=== PATIENT | male | born 1990 | race Caucasian/White ===

== ENCOUNTER 2021-01-16 19:15 | Emergency (ER) | payer SELFPAY ==
[2021-01-16 19:16] VITALS: BP 130/73; PULSE 103; RESP 18; TEMP 35.6; O2SAT 97; BMI 25.6
[2021-01-16 20:23] VITALS: PULSE 84; RESP 16
[2021-01-16] MEDS: Albuterol 2.5 MG/3 ML VIAL.NEB. INHALATION ×3 (20:25)
--- NOTE | 2021-01-16 20:42 | RAD_ITS ---
STUDY: X-RAY CHEST REASON FOR EXAM: Male, 30 years old. Hemoptysis and wheezing TECHNIQUE: PA and lateral views of the chest. COMPARISON: None. FINDINGS: The lungs are clear and expanded. There is no demonstrated pleural abnormality. Normal size heart. Normal mediastinum and amanda. Normal visualized pulmonary arteries. Normal visualized aortic arch and descending thoracic aorta. Normal visualized thoracic spine. Normal visualized ribs, clavicles, and shoulders. There is no demonstrated abnormality of the visualized soft tissue structures of the upper abdomen. RAD/Chest PA and Lateral IMPRESSION: Normal x-ray examination of the chest. Electronically Signed: Nelson Davis MD at 21:33 EDT , Service support ,
[2021-01-16 21:08] VITALS: PULSE 100; RESP 16; O2SAT 100; O2SAT 98
--- NOTE | 2021-01-16 21:10 | EX.ED.DYSGE1 ---
HPI History of Present Illness Chief Complaint: Cold Sx Informant: patient Onset/Context/Timing Onset: Yesterday Context: Sudden Onset Timing: Intermittent Quality: Cough, shortness of breath, hemoptysis Location: Respiratory Current Severity: Mild Maximum Severity: Moderate Worsened by: Dyspnea on exertion Relieved by: Nothing Associated Symptoms Associated Symptoms: Hoarse voice, wheezing and dyspnea on exertion Narrative Narrative: Patient is a 30-year-old male who is a smoker. He had asthma as a child. He reports temperature to 101.0 ?F. He denies rhinorrhea, congestion postnasal drainage. Denies sore throat. Does have a cough. Cough is scantly productive. He was concerned because he coughed up blood. He also complains of dyspnea on exertion. He had Covid. He was not vaccinated. He denies headache, ocular, auditory or visual symptoms. He denies neck pain or neck stiffness. He denies GI symptoms. He is a smoker. Prior similar symptoms: Yes Recent Illness/Hospitalization: No PFSH PFSH Home Medications albuterol sulfate [Ventolin HFA] 2 puff INHALATION Q4H PRN PRN #1 inhaler 01/16/21 [Rx Last Taken Unknown] Allergy/AdvReac Type Severity Reaction Status Date / Time shellfish derived Allergy Anaphylaxis Verified 01/16/21 19:18 no surgical history Social History (Updated 01/16/21 @ 21:[address] Sameer Menjivar MD) household members: none Smoking Status: Current every day smoker tobacco type: cigarettes alcohol intake: current alcohol intake frequency: a few times a month substance use type: does not use ROS ROS ED Constitutional Constitutional ED: Reports chills and fever(s); Denies subjective or sweats Eyes Eyes: Denies blurry vision, change in vision or diplopia ENT ENT ED: Denies ear pain, rhinorrhea or sore throat Cardiovascular Cardiovascular: Denies chest pain, orthopnea, palpitations, paroxysmal nocturnal dyspnea or racing heartbeat Respiratory/Chest Respiratory/Chest: Reports cough, dyspnea, dyspnea on exertion and sputum; Denies orthopnea or paroxysmal nocturnal dyspnea Gastrointestinal Gastrointestinal: Denies abdominal pain, diarrhea, nausea or vomiting Musculoskeletal Musculoskeletal: Denies arthralgias, back pain, myalgias or neck pain Integumentary Denies rash Neurologic Neurologic: Denies headache(s), paresthesias or weakness Endocrine Endocrinology: Denies polydipsia, polyphagia or polyuria Allergic/Immunologic Allergic/Immunologic ED: Denies urticaria EXAM Physical Exam Const Vital Signs: 01/16/21 19:16 01/16/21 20:23 01/16/21 21:08 Temperature 96.1 F L Temperature Source Temporal Pulse Rate 103 H 84 100 Respiratory Rate 18 16 16 Respiratory Effort Short of Breath Respiratory Pattern Normal Blood Pressure 130/73 H Blood Pressure Mean 92 Pulse Ox 97 98 Oxygen Delivery Method Room Air Room Air Positive well nourished HEENT Reports TM's clear and moist mucous membranes Tympanic Membrane ED: Yes TM's clear Eyes PERRL and EOMs intact bilaterally General Eye ED: Negative for pale conjunctiva or scleral icterus Neck no lymphadenopathy and no JVD Chest Wall inspection of chest normal Resp normal respiratory effort and clear to auscultation bilaterally Cardio regular rhythm, S1 normal heart sound, S2 normal heart sound and no murmurs Rate: tachycardic GI normal to inspection, nondistended, normoactive bowel sounds Palpation: soft Back/Spine no CVA tenderness Extremity normal to inspection General Extremety ED: Negative for edema or tenderness General Extremity: Negative for edema Neuro oriented x3, CN's II-XII intact bilaterally and no sensory deficits noted Sensorium / Orientation: alert Motor Exam: strength 5/5 throughout Psych mental status grossly normal Skin no rashes or lesions noted and no wounds MDM MDM MDM Narrative Medical decision making narrative: Because patient complains of hemoptysis has wheezing will get chest x-ray to assess for pneumonia etc. Patient was treated with albuterol. Will reassess. Radiography Chest X-Ray - ED: 2 View, Read by ED Physician, Heart, Lungs, Mediastinum, Bony Structures and No Acute Disease Diagnostic Testing: Radiology Impression Chest X-Ray 01/16/21 20:42 IMPRESSION: Normal x-ray examination of the chest. Electronically Signed: Nelson Davis MD at 21:33 EDT , Service support , Treatment and Re-Evaluation Comments:: Was reexamined. He is wheeze free. He was discharged prescription for albuterol. Discharge Plan Triage Chief Complaint: Cold Sx ED Provider: Sameer Menjivar Dx/Rx/DC Orders Clinical Impression: Cough with hemoptysis, Acute bronchitis with wheezing Instructions: ED Bronchitis, No Antibiotic (Adult), ED Hemoptysis Prescriptions: New albuterol sulfate [Ventolin HFA] 1 INHALER inhaler 2 puff inhalation Q4H PRN PRN (Reason: Wheezing) Qty: 1 RF: 0 Primary Care Provider: Care Physician,No Primary Referrals: Fast,Melody, DO [NON-STAFF] - 1-2 Weeks Care Physician,No Primary [Primary Care Provider] - Disposition Disposition: Home, Self Care
== END 2021-01-16 21:56 | disposition home or self-care (01) ==
PROVIDERS: Emergency Provider Emergency Medicine
DX: J20.9 Acute bronchitis, unspecified (principal); R04.2 Hemoptysis; Z20.822 Contact with and (suspected) exposure to COVID-19; F17.210 Nicotine dependence, cigarettes, uncomplicated; Z79.899 Other long term (current) drug therapy
CPT/HCPCS: 71046; 87426; 94640; 99283

== ENCOUNTER 2021-03-28 00:10 | Emergency (ER) | payer MEDICAID, SELFPAY ==
[2021-03-28 00:12] VITALS: BP 139/98; PULSE 98; RESP 18; TEMP 36.6; O2SAT 99; BMI 27.1
[2021-03-28 00:16] VITALS: O2SAT 96
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
[2021-03-28 05:46] VITALS: RESP 16
[2021-03-28 07:15] VITALS: BP 120/80; PULSE 101; RESP 16; O2SAT 96
== END 2021-03-28 07:20 | disposition home or self-care (01) ==
PROVIDERS: Emergency Provider Emergency Medicine
DX: S60.221A Contusion of right hand, initial encounter (principal); Y04.8XXA Assault by other bodily force, initial encounter; Y93.01 Activity, walking, marching and hiking; Y92.9 Unspecified place or not applicable; Y99.9 Unspecified external cause status; F17.210 Nicotine dependence, cigarettes, uncomplicated
CPT/HCPCS: 70450; 70486; 72125; 73130; 99285

== ENCOUNTER 2023-02-10 13:38 | Emergency (ER) | payer MEDICAID, SELFPAY ==
[2023-02-10 13:40] VITALS: BP 152/103; PULSE 128; RESP 18; TEMP 36.7; O2SAT 97; BMI 23.8
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
[2023-02-10 14:49] VITALS: BP 148/98; PULSE 115; RESP 16; O2SAT 97
[2023-02-10 14:54] LABS: Absolute Lymphocyte Count 2.44 X10^3/uL (0.83-4.51); Basophil# 0.05 X10^3/uL; Basophil% 0.6 % (0-1); Eosinophil# 0.19 X10^3/uL; Eosinophils% 2.3 % (0-5); Lymphocyte # 2.44 X10^3/ul (0.83-4.51); Lymphocyte % 29.5 % (19-41); Mean Corp Hgb Conc 32.6 g/dL (32-36); Mean Corpuscular Hgb 29.5 pg (27.0-32.0); Mean Corpuscular Volume 90.6 fL (80-94); Mean Platelet Vol. 12.2 fl (6.2-12.0); Monocyte% 7.2 % (0-10); NRBC Flagged by Analyzer 0 % (0-5); Neutrophil # 4.98 X10^3/uL (2.7-7.7); Neutrophil % 60.2 % (47-70); Platelet Count 244 K/mm3 (150-450); RBC Distribution Width CV 13.3 % (11.6-14.6); RBC Distribution Width SD 44.7 fl (35.1-43.9); Red Blood Count 5.08 M/mm3 (4.6-6.2); White Blood Count 8.3 K/mm3 (4.4-11.0)
[2023-02-10 15:10] LABS: ALB/GLOB Ratio 1.3 RATIO (0.9-2.4); AST(SGOT) 28 U/L (15-37); Alanine Aminotransfer ALT/SGPT 35 U/L (16-61); Albumin, Serum 4.5 g/dL (3.2-5.0); Alkaline Phosphatase 81 U/L (45-117); Anion Gap 10 (5-15); BUN 10 mg/dL (7-18); BUN/Creat Ratio 9.9 RATIO (10-20); Calcium,Total 9.5 mg/dL (8.5-10.1); Chloride 105 mmol/L (98-107); Creatinine, Serum 1.01 mg/dL (0.70-1.30); EST Glomerular Filtration Rate 90 mL/min (>60); Est Glom Filt Rate - Afr Amer 109 mL/min (>60); Estimated Creatinine Clearance 114.18 ml/min; Globulin 3.4 g/dL (2.2-4.2); Glucose 101 mg/dL (74-106); Potassium 2.9 mmol/L (3.5-5.1); Protein, Total 7.9 g/dL (6.4-8.2); Sodium Level 141 mmol/L (136-145)
[2023-02-10 15:22] LABS: Alcohol, Blood (Medical)-Serum < 3.0 mg/dL
[2023-02-10] MEDS: Potassium Chloride Oral Tablet 20 MEQ 40 MEQ PO (15:24)
[2023-02-10 15:42] VITALS: RESP 16
[2023-02-10 15:44] VITALS: RESP 16
[2023-02-10 16:35] LABS: Amphetamine Urine VISTA POSITIVE (<1000 ng/mL); Barbiturate Urine VISTA NEGATIVE (< 200 ng/mL); Benzodiazepine Urine VISTA NEGATIVE (< 200 ng/mL); Cocaine Urine VISTA POSITIVE (< 300 ng/mL); Ecstacy Urine VISTA POSITIVE (< 500 ng/mL); Methadone Urine VISTA NEGATIVE (< 300 ng/mL); PCP Urine VISTA NEGATIVE (< 25 ng/mL); THC Urine VISTA POSITIVE (< 50 ng/mL); Vista UDS pH Range 6
[2023-02-10 19:45] VITALS: BP 133/74; PULSE 87; RESP 16; O2SAT 98
== END 2023-02-10 19:46 | disposition home or self-care (01) ==
PROVIDERS: Emergency Provider Emergency Medicine; Visit Provider Emergency Medicine
DX: F23 Brief psychotic disorder (principal); F14.10 Cocaine abuse, uncomplicated; F31.9 Bipolar disorder, unspecified; E87.6 Hypokalemia; R36.9 Urethral discharge, unspecified; Z11.3 Encounter for screening for infections with a predominantly sexual mode of transmission; F17.210 Nicotine dependence, cigarettes, uncomplicated; Z79.899 Other long term (current) drug therapy
CPT/HCPCS: 80053; 80307; 82077; 85025; 87491; 87591; 87811; 99285

== ENCOUNTER 2023-08-25 12:22 | Emergency (ER) | payer MEDICAID, SELFPAY ==
[2023-08-25 12:23] VITALS: BP 139/83; PULSE 79; RESP 14; TEMP 36.4; O2SAT 100; BMI 22.8
--- NOTE | 2023-08-25 12:32 | EX.ED.DYSGE1 ---
HPI <VERITO Villareal - Last Filed: 08/25/23 14:16> History of Present Illness Chief Complaint: Lower Extremity Injury Narrative Narrative: 32-year-old male states about a week ago he was doing repetitions of overhead squats when he felt a pop and pain in his right groin area. He has avoided lower body exercises but it hurts with movement or bending. He states he has to go up and down stairs frequently at work which exacerbates the pain. No back or abdominal pain. Pain does not radiate down his leg. He has no weakness or paresthesias. No history of prior injury or surgery. PFSH <VERITO Villareal - Last Filed: 08/25/23 14:16> [facility] Medical History (Updated 08/25/23 @ 13:14 by VERITO Villareal) Anxiety Bipolar disorder Depression PTSD (post-traumatic stress disorder) Home Medications albuterol sulfate 90 mcg/actuation aerosol inhaler (Ventolin HFA) 2 puff inhalation Q4H PRN PRN Wheezing ##1 01/16/21 [Rx Last Taken Unknown] acamprosate 333 mg tablet,delayed release 333 mg PO BID 02/10/23 [History Last Taken Unknown] bupropion HCl 150 mg 24 hr tablet, extended release 150 mg PO DAILY 02/10/23 [History Last Taken Unknown] cholecalciferol (vitamin D3) 125 mcg (5,000 unit) tablet 125 mcg PO DAILY 02/10/23 [History Last Taken Unknown] lisdexamfetamine 50 mg capsule (Vyvanse) 50 mg PO DAILY 02/10/23 [History Last Taken Unknown] propranolol 40 mg tablet 40 mg PO Q12H 02/10/23 [History Last Taken Unknown] Allergy/AdvReac Type Severity Reaction Status Date / Time shellfish derived Allergy Anaphylaxis Verified 08/25/23 12:24 Social History (Updated 02/10/23 @ 14:[address] Brad Calero MD) household members: none Smoking Status: Current some day smoker tobacco type: cigarettes alcohol intake: current alcohol intake frequency: a few times a month substance use type: crack/cocaine ROS <VERITO Villareal - Last Filed: 08/25/23 14:16> ROS ED ROS Narrative Neuro: Negative for motor/sensory dysfunction. Musc: Positive for right hip pain. EXAM <VERITO Villareal - Last Filed: 08/25/23 14:16> Physical Exam Narrative Exam Narrative: CONST: Patient sitting in no acute distress. EYES: Normal inspection. NECK: Normal inspection. Back: Normal inspection, no midline tenderness. SKIN: Color normal, no rash, warm, dry, intact. EXTREMITIES: Normal appearance of BLLE. Full ROM, 5/5 strength in bilateral hip flexion, knee flexion/extension, DF/PF. Normal sensation. 2+ DP pulses. Tender over right groin muscles. No tenderness of the pelvis or hip. No pain with logroll. NEURO: Oriented x4. PSYCH: Normal affect. Const Vital Signs: 08/25/23 12:23 Temperature 97.5 F L Temperature Source Temporal Pulse Rate 79 Respiratory Rate 14 Blood Pressure 139/83 H Blood Pressure Mean 101 Pulse Ox 100 Oxygen Delivery Method Room Air <Mervin Aldrich MD - Last Filed: 08/25/23 14:46> Physical Exam Const Vital Signs: 08/25/23 12:23 Temperature 97.5 F L Temperature Source Temporal Pulse Rate 79 Respiratory Rate 14 Blood Pressure 139/83 H Blood Pressure Mean 101 Pulse Ox 100 Oxygen Delivery Method Room Air MDM <VERITO Villareal - Last Filed: 08/25/23 14:16> [facility] Narrative Medical decision making narrative: Patient has pain in his right groin after squatting last week. He is ambulatory. He has no external signs of injury. Lower extremities are neurovascularly intact. He has reproducible tenderness over the muscles of his right groin and I suspect a strain. X-ray shows no acute findings. I discussed symptomatic care at home and he was discharged in stable condition. Radiography Diagnostic Testing: Clinical Impression(s) from Imaging Studies Hip/Pelvis X-Ray 08/25/23 12:37 IMPRESSION: No evidence of displaced pelvic or hip fracture. Electronically Signed: Louis Royal MD at 13:09 EST , ED attending interpretation of right hip and pelvis shows no fracture or dislocation. <Mervin Aldrich MD - Last Filed: 08/25/23 14:46> [facility] Narrative Medical decision making narrative: Patient has pain in his right groin after squatting last week. He is ambulatory. He has no external signs of injury. Lower extremities are neurovascularly intact. He has reproducible tenderness over the muscles of his right groin and I suspect a strain. X-ray shows no acute findings. I discussed symptomatic care at home and he was discharged in stable condition. Dr. Aldrich: I have personally performed a face to face assessment of the patient and have reviewed the NADIA Note. I performed a substantive portion of the visit including all aspects of the following. My calvert findings include: History is right inguinal pain after squatting last week with weights. Exam is afebrile. Vital signs noted. Regular rate and rhythm. Lungs clear to auscultation bilaterally. Abdomen soft and nontender with normal active bowel sounds. Neuro vas intact distally right lower extremity, mild tenderness to palpation right inguinal area along hip abductors. Medical Decision Making: In the differential diagnosis is inguinal hernia versus groin strain versus pelvic fracture. I have low suspicion for hernia based on his clinical examination. X-rays obtained to rule out fracture. On my interpretation, no evidence of acute fracture. I reviewed the radiology report which confirms my independent interpretation. Patient ambulatory here, will continue rest and [id number] analgesics. He was told to refrain from squatting motion and exercises until fully healed. Disposition is discharged home in stable condition. Other additions or changes: [None] Radiography Diagnostic Testing: Clinical Impression(s) from Imaging Studies Hip/Pelvis X-Ray 08/25/23 12:37 IMPRESSION: No evidence of displaced pelvic or hip fracture. Electronically Signed: Louis Royal MD at 13:09 RUST , Discharge Plan Triage Chief Complaint: Lower Extremity Injury ED Midlevel Provider: Kiera Mendez ED Provider: Mervin Aldrich Dx/Rx/DC Orders Clinical Impression: Strain of right groin Instructions: ED Groin Strain Prescriptions: No Action albuterol sulfate [Ventolin HFA] 1 INHALER inhaler 2 puff inhalation Q4H PRN PRN (Reason: Wheezing) Qty: 1 0RF acamprosate 333 mg tablet,delayed release (DR/EC) 333 mg PO BID Patient Comments: TAKE 1 TABLET BY MOUTH TWICE DAILY bupropion HCl 150 mg tablet extended release 24 hr 150 mg PO DAILY Patient Comments: TAKE 1 TABLET BY MOUTH EVERY DAY cholecalciferol (vitamin D3) 125 mcg (5,000 unit) tablet 125 mcg PO DAILY Patient Comments: TAKE 1 TABLET BY MOUTH EVERY DAY propranolol 40 mg tablet 40 mg PO Q12H Patient Comments: TAKE 1 TABLET BY MOUTH TWICE DAILY Vyvanse 50 mg capsule 50 mg PO DAILY Patient Comments: TAKE 1 CAPSULE BY MOUTH EVERY MORNING Primary Care Provider: Care Physician,No Primary Referrals: Care Physician,No Primary [Primary Care Provider] - Activity Restrictions/Additional Instructions: Rest, ice, and take Tylenol or Motrin as needed Disposition Disposition: Home, Self Care Discharge Date/Time: 08/25/23 13:43
--- NOTE | 2023-08-25 12:37 | RAD_ITS ---
INDICATION: pain EXAMINATION/TECHNIQUE: X-RAY - XR Hip Unilateral with Pelvis when performed; 2-3 Views COMPARISON: No relevant prior comparison study available FINDINGS: PELVIC BONES: No displaced fracture, destructive or sclerotic lesions. Note that overlapping bowel shadows may however obscure fine detail. Sacroiliac joints are unremarkable. No widening of the pubic symphysis. HIPS: The articular structures are unremarkable. No displaced fracture seen in this frontal view. SOFT TISSUES: No soft tissue swelling or gas. RAD/HIP, UNI W/ Pelvis 2-3 Views IMPRESSION: No evidence of displaced pelvic or hip fracture. Electronically Signed: Louis Royal MD at 13:09 EST ,
--- OUTSIDE RECORDS SUMMARY | 2023-08-25 12:51 | XMS RPT_ITS | CCD ---
Author Name Unknown Address [address] [place] [address] Organization [facility] Care Team Providers Care Hose Builder Name Role Phone Unavailable Primary Care Provider BIRGIT Atkins Referring Unavailable SALO CURIEL Referring Unavailable Unavailable Primary Care Provider LUIS Shipman Attending Unavailable LUIS DEMPSEY Admitting Unavailable Medications Current Medications Medication Drug Class(es) Dates Sig (Normalized) Sig (Original) predniSONE 20 mg oral tablet (1 source) Start: 12-05-2021 End: 12-10-2021 take 2 tablets by mouth once daily predniSONE (DELTASONE) 20 mg tablet Indications: Allergic conjunctivitis and rhinitis, bilateral Take 2 tablets by mouth once daily for 5 days. 10 tablet 0 12/05/2021 12/10/2021 Active Completed/Discontinued Medications Medication Drug Class(es) Dates Sig (Normalized) Sig (Original) acamprosate (2 sources) acamprosate calc ium (ACAMPROSATE ORAL) Take by mouth. 0 Active Problems Problem Classification Problem Date Documented Da te Episodic/Chronic Alcohol-related disorders (1 source) Alcohol dependence; Translations: [Alcohol dependence, uncomplicated] Chronic Fluid and electrolyte disorders (1 source) Hypokalemia; Translations: [Hypokalemia] Onset: 02-11-2023 Episodic Inflammation; infection of eye (except that caused by tuberculosis or sexually transmitteddisease) (1 source) Allergic conjunctivitis; Translations: [Acute atopic conjunctivitis, bilateral] Episodic Other lower respiratory disease (1 source) Cough; Translations: [Acute cough] Episodic Schizophrenia and other psychotic disorders (1 source) Brief psychotic disorder; 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] Onset: 02-13-2023 Episodic Substance-related disorders (1 source) Other psychoactive substance use, unspecified, uncomplicated; Translations: [Other psychoactive substance use, unspecified, uncomplicated] Onset: 02-11-2023 Episodic Unclassified (1 source) Acute cough; Translations: [Acute cough] Onset: 07-04-2022 Viral infection (2 sources) Viral infection, unspecified; Translations: [Viral disease] Onset: 07-12-2021 Episodic Results Test Name Value Interpretation Reference Range Facil ity Vital Signs Date Time Vital Sign Value Performing Clinician Mohamud dwyer 07-04-2022 09:30-0500 Body temperature 97.5 [degF] Birgit Recinos SOCKET PULLER.LUMBER LOADER Work Phone: [facility] 07-04-2022 09:30-0500 Body weight 89.09 kg Birgit Recinos SOCKET PULLER.LUMBER LOADER Work Phone: [facility] 07-04-2022 09:30-0500 Diastolic blood pressure 70 mm[Hg] Birgit Recinos SOCKET PULLER.LUMBER LOADER Work Phone: [facility] 07-04-2022 09:30-0500 Heart rate 100 /min Birgit Recinos SOCKET PULLER.LUMBER LOADER Work Phone: [facility] 07-04-2022 09:30-0500 Respiratory rate 18 /min Birgit Recinos SOCKET PULLER.LUMBER LOADER Work Phone: [facility] 07-04-2022 09:30-0500 SaO2% (BldA) [Mass fraction] 98 % Birgit Recinos SOCKET PULLER.LUMBER LOADER Work Phone: [facility] 07-04-2022 09:30-0500 Systolic blood pressure 108 mm[Hg] Birgit Recinos SOCKET PULLER.LUMBER LOADER Work Phone: [facility] 12-05-2021 08:21-0400 Body temperature 97 [degF] Vaibhav Felton SOCKET PULLER.LUMBER LOADER Work Phone: [facility] 12-05-2021 08:21-0400 Body weight 92.26 kg Vaibhav Felton SOCKET PULLER.LUMBER LOADER Work Phone: [facility] 12-05-2021 08:21-0400 Diastolic blood pressure 80 mm[Hg] Vaibhav Felton SOCKET PULLER.LUMBER LOADER Work Phone: [facility] 12-05-2021 08:21-0400 Heart rate 75 /min Vaibhav Felton SOCKET PULLER.LUMBER LOADER Work Phone: [facility] 12-05-2021 08:21-0400 Respiratory rate 16 /min Vaibhav Felton SOCKET PULLER.LUMBER LOADER Work Phone: [facility] 12-05-2021 08:21-0400 SaO2% (BldA) [Mass fraction] 98 % Vaibhav Felton SOCKET PULLER.LUMBER LOADER Work Phone: [facility] 12-05-2021 08:21-0400 Systolic blood pressure 122 mm[Hg] Vaibhav King SOCKET PULLER.LUMBER LOADER Work Phone: [facility] 03-28-2021 16:44-0400 Body temperature 98.8 [degF] [employer] Phone: 03-28-2021 16:44-0400 Body weight 90.72 kg [employer] Phone: 03-28-2021 16:44-0400 Diastolic blood pressure 106 mm[Hg] [employer] Phone: 03-28-2021 16:44-0400 Heart rate 108 /min [employer] Phone: 03-28-2021 16:44-0400 Respiratory rate 16 /min [employer] Phone: 03-28-2021 16:44-0400 SaO2% (BldA) [Mass fraction] 97 % [employer] Phone: 03-28-2021 16:44-0400 Systolic blood pressure 161 mm[Hg] [employer] Phone: Encounters Encounter Date Encounter Type Care Provider Facility Start: 02-11-2023 End: 02-18-2023 [facility] and [facility] Start: 07-04-2022 End: 07-04-2022 [facility] Start: 07-04-2022 End: 07-04-2022 Office outpatient visit 15 minutes Birgit Grisel MEJIA.LUMBER LOADER Work Phone: [facility] Procedures Date Procedure Procedure Detail Performing Clinician Start: 02-18-2023 DISCHARGE PATIENT ABBIE DEMPSEY Start: 02-13-2023 ACTIVITY TOLERATED Santy DEMPSEY Start: 02-13-2023 INITIATE HYPOGLYCEMI A TREATMENT LUIS DEMPSEY Start: 02-13-2023 MONITOR LUIS HUNG Start: 02-13-2023 NURSING COMMUNICATION Santy DEMPSEY Start: 02-13-2023 REASON FOR NO CHEMIC AL VTE PROPHYLAXIS LUIS DEMPSEY Start: 02-13-2023 SUICIDE PRECAUTIONS ZAHEER DEMPSEY Start: 02-13-2023 VITAL SIGNS LUIS JENNINGSN Start: 02-12-2023 ADMIT TO BEHAVIORAL ZAHEER DEMPSEY Start: 02-12-2023 ADULT DIET LUIS HUNG Start: 02-12-2023 FULL CODE LUIS HUNG Start: 02-12-2023 PATIENT MONITORING C LOSE Q 15 MINUTES LUIS DEMPSEY Start: 02-12-2023 CONSTANT OBSERVATION JUAN DEMPSEY Start: 02-12-2023 Ecg routine ecg w/le ast 12 lds w/i&r LUIS DEMPSEY Start: 02-12-2023 Drug tst prsmv instr mnt chem analyzers pr date LUIS DEMPSEY Start: 02-12-2023 Urnls dip stick/tabl et rgnt auto w/o microscopy LUIS DEMPSEY Start: 02-12-2023 Comprehensive metabo lic panel LUIS DEMPSEY Start: 02-12-2023 Drug screen, qualitate/multi LUIS DEMPSEY Start: 02-11-2023 ALCOHOL AND OR DRUG ASSESSMENT LUIS DEMPSEY Start: 02-11-2023 FALL PRECAUTIONS SHANI AD KE Start: 02-11-2023 NOTIFY PHYSICIAN (SPECIFY) LUIS DEMPSEY Start: 02-11-2023 SEIZURE PRECAUTIONS ZAHEER AMMAD JESSICAEN Start: 02-11-2023 IP CONSULT TO SOCIAL WORK LUIS DEMPSEY Start: 02-11-2023 SUICIDE PRECAUTIONS [facility] DEM[facility]SE[facility] Start: 07-04-2022 COVID WITH FLUA+B, ROUTINE Birgit Recinos APRN.[facility] Work Phone: Plan of Treatment Date Care Activity Detail Author Start: 07-01-2022 DEPRESSION ASSESSMENT DEPRESSION ASSESSMENT [facility] Start: 03-01-2022 Influenza vaccination [facility] Start: 03-01-2021 Influenza vaccination Flu vaccine (#1) [employer] Phone: Start: 2008 DTaP/Tdap/Td vaccine (1 - Tdap) DTaP/Tdap/Td vaccine (1 - Tdap) [employer] Phone: Start: 2008 Urine microalbumin profile DTAP,TDAP,TD (1 - Tdap) [facility] Start: 10-13-2007 HEPATITIS C SCREENING HEPATITIS C SCREENING [facility] Start: 10-13-2007 HIV SCREENING HIV SCREENING [facility] Start: 2004 HIV screening HIV screen [facility] [employer] Phone: Start: 2001 Adult depression screening assessment DEPRESSION SCREENING [facility] Start: 2001 COVID-19 Vaccine (1) COVID-19 Vaccine (1) [employer] Phone: Start: 10-13-1995 PNEUMOCOCCAL (1 - PCV) PNEUMOCOCCAL (1 - PCV) [facility] Start: 1994 COVID-19 VACCINE (#1) COVID-19 VACCINE (#1) [facility] Start: 1990 Varicella vaccine (1 of 2 - 2-dose childhood series) Varicella vaccine (1 of 2 - 2-dose childhood series) [facility] [employer] Phone: Start: 04-13-1990 COVID-19 VACCINE (#1) COVID-19 VACCINE (#1) [facility] Start: 1989 HEPATITIS B (1 of 3 - 3-dose series) HEPATITIS B (1 of 3 - 3-dose series) [facility] Start: 1989 Hepatitis C [facility] End: 03-28-2021 XR HAND LEFT (MIN 3 VIEWS) XR HAND LEFT (MIN 3 VIEWS) Imaging STAT Once for 1 Occurrences starting 03/28/2021 until 03/28/2021 [employer] Phone: Payers Date Payer Category Payer Medicaid [employer] [id number] 2021-Present [phone] [place] [address] [id number] Medicaid [id number] 2021 Medicaid [id number] 2021 Medicaid [employer] [employer] [id number] 2021-Present [phone] [address] [place] [id number] Medicaid [id number] 1989 Unknown [id number] Social History Date Type Detail Facility Start: 03-28-2021 Tobacco smoking stat us [facility] Unknown if ever smoked [employer] Phone: Start: 03-28-2021 Alcohol intake Current drinke r of alcohol (finding) [employer] Phone: Start: 03-28-2021 Alcohol Comment almost 5th last nigh t [employer] Phone: Start: 1990 Sex Assigned At Not on file M [employer] Phone: Start: 11-25-2021 End: 12-05-2021 Exposure to SARS-CoV-2 (event) Not sure [employer] Start: 06-10-2021 End: 07-04-2022 Tobacco smoking status NHIS Smokes tobacco daily [facility] History of tobacco use Cigarette Smoker [facility] Start: 06-10-2021 End: 07-04-2022 Cigarettes smoked current (pack per day) - Reported 1 [facility] Start: 06-10-2021 End: 07-04-2022 Tobacco use and exposure Smokeless tobacco non-user [facility] Start: 06-10-2021 End: 07-04-2022 Tobacco Comment 1 pack per week [facility] Clinical Notes 07-12-2021 to 07-04-2022 Patient InstructionsBirgit Recinos APRN.JYOTI - 07/04/2022 9:49 AM Maddy Felton APRN.CNP - 12/05/2021 9:01 AM EDTPatient Instructions Note Date & Type Note Facility 07-04-2022 Note HNO ID: [id number] Author: RT John(R) Service: Nuclear Medicine Author Type: Technologist Type: Progress Notes Filed: 07/04/2022 10:02 AM Note Text: Radiology Service Progress Note PATIENT NAME: Alex Monreal DATE OF SERVICE: July 04, 2022 TIME: 9:57 AM PATIENT IDENTITY VERIFICATION COMPLETED USING TWO (2) IDENTIFIERS: Name and Date of confirmed by patient verbally. FALL SCREENING: Has the patient had 2 falls in the last year or 1 fall with injury or currently using an Ambulatory Assistive Device (Walker, Cane, Wheelchair, Crutches, etc.)? No PATIENT GENDER DATA: Male PATIENT RELEVANT IMPLANT DATA REVIEWED: Not Applicable RADIOLOGY DEPARTMENT: General X-ray: Exam(s) Completed: Chest X-Ray PERIPHERAL IV DATA: Not applicable SIGNED BY: RT John(R) July 04, 2022 9:57 AM [facility] 07-04-2022 Note HNO ID: [id number] Author: Birgit Recinos APRN.JYOTI Service: ? Author Type: Nurse Practitioner Type: Progress Notes Filed: 07/04/2022 10:19 AM Note Text: Subjective HPI Nontoxic-appearing male presents to urgent care with chief complaint of fever and cough. Duration of symptoms 4 days. Associated symptoms with chief complaint are on and off headache, muscle aches, fatigue, nonproductive cough, and fever. States fever body aches chills have since subsided. Today most prominent symptom is cough chest congestion. Patient stated symptoms started abruptly. Patient states they have used [id number]-[id number] medication with some success. Patient states they were in contact with individuals who were diagnosed with influenza. Patient denies any pain at this time. Patient denies any visual changes, visual disturbance, shortness of breath, rash, exercise intolerance, pleuritic pain, productive cough, abdominal pain, nausea, vomiting, chest pain, or change in bowel or bladder habits. Past medical history prescription medication use allergies reviewed. .Patient presents with: Cough: Chest congestion, nausea, ST, bodyaches x4 days History reviewed. No pertinent past medical history. History reviewed. No pertinent surgical history. ALLERGIES Patient has no known allergies. MEDICATIONS fluticasone (FLONASE) 50 mcg/actuation nasal spray Use 2 Sprays in each nostril once daily. Rinse mouth after use. olopatadine (PATANOL) 0.1 % ophthalmic solution Use 1 Drop in both eyes twice daily. propranolol (INDERAL) 10 mg tablet Take 10 mg by mouth three times daily. lisdexamfetamine (VYVANSE) 20 mg chew Take by mouth. albuterol HFA (PROVENTIL HFA, VENTOLIN HFA) 90 mcg/actuation inhaler Inhale 2 Puffs as instructed every 4 hours as needed for wheezing/shortness of breath. bupropion HCl (WELLBUTRIN ORAL) Take by mouth. acamprosate calcium (ACAMPROSATE ORAL) Take by mouth. trimethoprim-polymyxin (POLYTRIM) 10,000 unit- 1 mg/mL ophthalmic solution Use 1 Drop in the left eye four times daily. (Patient not taking: Reported on 07/12/2021 ) History reviewed. No pertinent family history. Social History Tobacco Use Smoking status: Every Day Packs/day: 1.00 Types: Cigarettes Smokeless tobacco: Never Tobacco comments: 1 pack per week BP 108/70 Pulse 100 Temp 36.4 ?C (97.5 ?F) Resp 18 Wt 89.1 kg (196 lb 6.4 oz) SpO2 98% Review of Systems Constitutional: Positive for chills and malaise/fatigue. Negative for fever. HENT: Positive for congestion. Negative for ear discharge, ear pain, sinus pain and sore throat. Eyes: Negative for blurred vision, pain, discharge and redness. Respiratory: Positive for cough. Negative for hemoptysis, sputum production, shortness of breath, wheezing and stridor. Cardiovascular: Negative for chest pain. Gastrointestinal: Negative for abdominal pain, diarrhea, nausea and vomiting. Musculoskeletal: Positive for myalgias. Skin: Negative for itching and rash. Neurological: Positive for headaches. Negative for dizziness. Objective Physical Exam Constitutional: General: He is not in acute distress. Appearance: He is not diaphoretic. HENT: Head: Normocephalic. Nose: Congestion present. Mouth/Throat: Mouth: Mucous membranes are moist. Pharynx: Oropharynx is clear. No oropharyngeal exudate or posterior oropharyngeal erythema. Eyes: Conjunctiva/sclera: Conjunctivae normal. Pupils: Pupils are equal, round, and reactive to light. Cardiovascular: Rate and Rhythm: Normal rate and regular rhythm. Heart sounds: Normal heart sounds. Pulmonary: Effort: Pulmonary effort is normal. No tachypnea, accessory muscle usage or respiratory distress. Breath sounds: No stridor. Wheezing present. No rhonchi or rales. Abdominal: Palpations: Abdomen is soft. Tenderness: There is no abdominal tenderness. There is no guarding or rebound. Musculoskeletal: Cervical back: Normal range of motion and neck supple. No rigidity or tenderness. Lymphadenopathy: Cervical: No cervical adenopathy. Skin: General: Skin is warm and dry. Neurological: Mental Status: He is alert and oriented to person, place, and time. ASSESSMENT/PLAN: 1. Acute cough - ICD9: 786.2, ICD10: R05.1 (primary diagnosis) - XR CHEST 2V FRONTAL/LAT - COVID WITH FLUA+B, ROUTINE 2. Viral illness - ICD9: 079.99, ICD10: B34.9 - Discussed viral etiology and rationale for treatment. - Symptomatic treatment with prn analgesia - Supportive care with fluids and rest - COVID WITH FLUA+B, ROUTINE IMPRESSION: No acute radiographic abnormality. Symptoms progressively improving. Chest x-ray negative. Treat as viral etiology at this time. Patient will follow up with primary care provider as needed. Patient was instructed to immediately proceed to emergency room for any new, worsening, or symptoms lasting longer than anticipated. The patient's clinical presentation is otherwi (more content not included)... [facility] 07-04-2022 Instructions Birgit Recinos APRN.[facility] - 07/04/2022 9:57 AM EST How to Manage Common Symptoms Associated with COVID for Adults Fever- Fever is a temperature over 100.4 F and can occur when the body is fighting an infection. To help treat a fever: Drink plenty of fluids and stay well hydrated. Eat small amounts of easy to digest food. Rest. Your body needs rest to recover, but getting up and moving around the house frequently is a good idea. You should try to continue doing your normal daily activities (bathing, toileting, grooming, cooking), though you will probably feel tired, and need to rest often. Avoid any heavy activity or exercise, as this will increase your body temperature. Dress in light clothing and stay covered in a light sheet. Keep the room temperature cool. Take a slightly warm (not cold or cool) bath, or apply damp washcloths to the forehead and wrists. Cough- Cough is a common symptom associated with COVID and can be bothersome. To help treat a cough: Stay well hydrated. Try warm water or tea with lemon and/or honey to help soothe the cough. Use a humidifier to add moisture to the air. Try a product with menthol, like a cough drop or a rub for your chest such as Vicks, which can help reduce cough. Try cough drops. Avoid smoking and other strong odors or perfumes. Try breathing exercises to keep your lungs open and clear. Take a big deep breath through your nose and hold for 5 seconds before slowly releasing. Repeat frequently, while you are awake. Congestion- Runny nose or nasal congestion can occur with COVID. Treatment can help relieve symptoms: Try OTC nasal saline spray, or nasal saline rinse to relieve mucus congestion. Nasal strips can help keep nasal passages open, to increase airflow. Elevating your head with an extra pillow in bed can help reduce congestion. Using a humidifier can increase moisture in the air, and make breathing easier. Sore Throat- Another common symptom with COVID, can be managed at home by: Stay well hydrated. Gargle with salt water - mix teaspoon salt with 1 cup of warm water and gargle. This helps to loosen mucus in the back of the throat and may reduce discomfort. Try ice chips, popsicles or lozenges to soothe the throat. Nausea/Vomiting/Diarrhea- These are common symptoms, and staying hydrated is most important. If you are nauseous or vomiting, start with small sips of water every 10-15 minutes and increase as tolerated. You can try sucking an ice cube too. If tolerating, you can try pedialyte or Gatorade, or flat sprite or gennaro-michael. Start slowly and increase as you are able to. Instead of meals, try smaller, more frequent snacks. Try eating bland foods like crackers, toast, rice, and applesauce. Avoid spicy, greasy or fried foods and dairy containing foods. Even if you aren't feeling hungry due to lack of smell or taste, it is important to try to take in some food when you are able. After drinking and eating, rest in an upright position for up to two hours as needed to help decrease nauseous feelings. Try closing your eyes, avoid moving and watching TV. Avoid strong odors that can make you feel more nauseated. When to seek emergency medical attention Look for emergency warning signs for COVID-19. If having any of these symptoms, seek emergency medical care immediately: Trouble breathing Persistent pain or pressure in the chest New confusion Inability to wake or stay awake Bluish lips or face *This list is not all possible symptoms. Please call your medical provider for any other symptoms that are severe or concerning to you. documented in this encounter [facility] 07-04-2022 History of Present illness Narrative Subjective HPI Nontoxic-appearing male presents to urgent care with chief complaint of fever and cough. Duration of symptoms 4 days. Associated symptoms with chief complaint are on and off headache, muscle aches, fatigue, nonproductive cough, and fever. States fever body aches chills have since subsided. Today most prominent symptom is cough chest congestion. Patient stated symptoms started abruptly. Patient states they have used okjz-rfo-boxmpbi medication with some success. Patient states they were in contact with individuals who were diagnosed with influenza. Patient denies any pain at this time. Patient denies any visual changes, visual disturbance, shortness of breath, rash, exercise intolerance, pleuritic pain, productive cough, abdominal pain, nausea, vomiting, chest pain, or change in bowel or bladder habits. Past medical history prescription medication use allergies reviewed. .Patient presents with: Cough: Chest congestion, nausea, ST, bodyaches x4 days History reviewed. No pertinent past medical history. History reviewed. No pertinent surgical history. ALLERGIES Patient has no known allergies. MEDICATIONS fluticasone (FLONASE) 50 mcg/actuation nasal spray Use 2 Sprays in each nostril once daily. Rinse mouth after use. olopatadine (PATANOL) 0.1 % ophthalmic solution Use 1 Drop in both eyes twice daily. propranolol (INDERAL) 10 mg tablet Take 10 mg by mouth three times daily. lisdexamfetamine (VYVANSE) 20 mg chew Take by mouth. albuterol HFA (PROVENTIL HFA, VENTOLIN HFA) 90 mcg/actuation inhaler Inhale 2 Puffs as instructed every 4 hours as needed for wheezing/shortness of breath. bupropion HCl (WELLBUTRIN ORAL) Take by mouth. acamprosate calcium (ACAMPROSATE ORAL) Take by mouth. trimethoprim-polymyxin (POLYTRIM) 10,000 unit- 1 mg/mL ophthalmic solution Use 1 Drop in the left eye four times daily. (Patient not taking: Reported on 07/12/2021 ) History reviewed. No pertinent family history. Social History Tobacco Use Smoking status: Every Day Packs/day: 1.00 Types: Cigarettes Smokeless tobacco: Never Tobacco comments: 1 pack per week BP 108/70 Pulse 100 Temp 36.4 C (97.5 F) Resp 18 Wt 89.1 kg (196 lb 6.4 oz) SpO2 98% Review of Systems Constitutional: Positive for chills and malaise/fatigue. Negative for fever. HENT: Positive for congestion. Negative for ear discharge, ear pain, sinus pain and sore throat. Eyes: Negative for blurred vision, pain, discharge and redness. Respiratory: Positive for cough. Negative for hemoptysis, sputum production, shortness of breath, wheezing and stridor. Cardiovascular: Negative for chest pain. Gastrointestinal: Negative for abdominal pain, diarrhea, nausea and vomiting. Musculoskeletal: Positive for myalgias. Skin: Negative for itching and rash. Neurological: Positive for headaches. Negative for dizziness. Objective Physical Exam Constitutional: General: He is not in acute distress. Appearance: He is not diaphoretic. HENT: Head: Normocephalic. Nose: Congestion present. Mouth/Throat: Mouth: Mucous membranes are moist. Pharynx: Oropharynx is clear. No oropharyngeal exudate or posterior oropharyngeal erythema. Eyes: Conjunctiva/sclera: Conjunctivae normal. Pupils: Pupils are equal, round, and reactive to light. Cardiovascular: Rate and Rhythm: Normal rate and regular rhythm. Heart sounds: Normal heart sounds. Pulmonary: Effort: Pulmonary effort is normal. No tachypnea, accessory muscle usage or respiratory distress. Breath sounds: No stridor. Wheezing present. No rhonchi or rales. Abdominal: Palpations: Abdomen is soft. Tenderness: There is no abdominal tenderness. There is no guarding or rebound. Musculoskeletal: Cervical back: Normal range of motion and neck supple. No rigidity or tenderness. Lymphadenopathy: Cervical: No cervical adenopathy. Skin: General: Skin is warm and dry. Neurological: Mental Status: He is alert and oriented to person, place, and time. ASSESSMENT/PLAN: 1. Acute cough - ICD9: 786.2, ICD10: R05.1 (primary diagnosis) - XR CHEST 2V FRONTAL/LAT - COVID WITH FLUA+B, ROUTINE 2. Viral illness - ICD9: 079.99, ICD10: B34.9 - Discussed viral etiology and rationale for treatment. - Symptomatic treatment with prn analgesia - Supportive care with fluids and rest - COVID WITH FLUA+B, ROUTINE IMPRESSION: No acute radiographic abnormality. Symptoms progressively improving. Chest x-ray negative. Treat as viral etiology at this time. Patient will follow up with primary care provider as needed. Patient was instructed to immediately proceed to emergency room for any new, worsening, or symptoms lasting longer than anticipated. The patient's clinical presentation is otherwise unremarkable at this time. Based on exam and clinical finding, the patient is stable for discharge. Plan of care was discussed with patient. Patient verbalizes understanding and agrees to plan of care. This note was generated using SlideMail software. It may contain errors in wording, punctuation, or spelling. Birgit Recinos APRN.JYOTI documented in this encounter [facility] 12-05-2021 Note HNO ID: [id number] Author: Vaibhav Felton APRN.JYOTI Service: ? Author Type: Nurse Practitioner Type: Progress Notes Filed: 12/05/2021 9:04 AM Note Text: Subjective HPI HPI Alex Monreal is a 31 year old male who presents today for CC of itchy watery eyes, nasal congestion. This started 1 day ago abruptly. Has tried nothing for relief. Symptoms are worsened by nothing. Risk factors hx of seasonal allergies. Denies cough, st, ear pain, fever, colored eye drainage. .Patient presents with: Eye Problem: bilateral red and irritated eyes x 1 day History reviewed. No pertinent past medical history. No past surgical history on file. ALLERGIES Patient has no known allergies. MEDICATIONS propranolol (INDERAL) 10 mg tablet Take 10 mg by mouth three times daily. lisdexamfetamine (VYVANSE) 20 mg chew Take by mouth. acamprosate calcium (ACAMPROSATE ORAL) Take by mouth. albuterol HFA (PROVENTIL HFA, VENTOLIN HFA) 90 mcg/actuation inhaler Inhale 2 Puffs as instructed every 4 hours as needed for wheezing/shortness of breath. bupropion HCl (WELLBUTRIN ORAL) Take by mouth. predniSONE (DELTASONE) 20 mg tablet Take 2 tablets by mouth once daily for 5 days. fluticasone (FLONASE) 50 mcg/actuation nasal spray Use 2 Sprays in each nostril once daily. Rinse mouth after use. olopatadine (PATANOL) 0.1 % ophthalmic solution Use 1 Drop in both eyes twice daily. trimethoprim-polymyxin (POLYTRIM) 10,000 unit- 1 mg/mL ophthalmic solution Use 1 Drop in the left eye four times daily. No family history on file. Social History Tobacco Use - Smoking status: Current Every Day Smoker Packs/day: 1.00 Types: Cigarettes - Smokeless tobacco: Never Used - Tobacco comment: 1 pack per week Substance Use Topics - Alcohol use: Not on file - Drug use: Not on file ROS Objective Blood pressure 122/80, pulse 75, temperature 36.1 ?C (97 ?F), temperature source Tympanic, resp. rate 16, weight 92.3 kg (203 lb 6.4 oz), SpO2 98 %. Physical Exam Constitutional: General: He is not in acute distress. Appearance: He is not toxic-appearing or diaphoretic. HENT: Head: Normocephalic and atraumatic. Nose: Congestion present. Eyes: General: Lids are normal. Right eye: No discharge. Left eye: No discharge. Conjunctiva/sclera: Right eye: Right conjunctiva is injected. Left eye: Left conjunctiva is injected. Cardiovascular: Rate and Rhythm: Normal rate and regular rhythm. Heart sounds: Normal heart sounds, S1 normal and S2 normal. Pulmonary: Effort: Pulmonary effort is normal. Breath sounds: Normal breath sounds. Neurological: Mental Status: He is alert and oriented to person, place, and time. Gait: Gait is intact. ASSESSMENT/PLAN: 1. Allergic conjunctivitis and rhinitis, bilateral - ICD9: 372.05, 477.9, ICD10: H10.13, J30.9 Allergic - see medication orders - course and contagiousness issues discussed, including hand washing. - Instructed to call if high fever, development of periorbital redness or swelling, eye pain, visual changes, concerns or if symptoms persist. - PREDNISONE 20 MG TABLET - FLUTICASONE PROPIONATE 50 MCG/ACTUATION NASAL SPRAY,SUSPENSION - OLOPATADINE 0.1 % EYE DROPS Agrees to plan Vaibhav Felton APRN.[facility] 12-05-2021 History of Present illness Narrative Images from the original note were not included. Subjective HPI HPI Alex Monreal is a 31 year old male who presents today for CC of itchy watery eyes, nasal congestion. This started 1 day ago abruptly. Has tried nothing for relief. Symptoms are worsened by nothing. Risk factors hx of seasonal allergies. Denies cough, st, ear pain, fever, colored eye drainage. .Patient presents with: Eye Problem: bilateral red and irritated eyes x 1 day History reviewed. No pertinent past medical history. No past surgical history on file. ALLERGIES Patient has no known allergies. MEDICATIONS propranolol (INDERAL) 10 mg tablet Take 10 mg by mouth three times daily. lisdexamfetamine (VYVANSE) 20 mg chew Take by mouth. acamprosate calcium (ACAMPROSATE ORAL) Take by mouth. albuterol HFA (PROVENTIL HFA, VENTOLIN HFA) 90 mcg/actuation inhaler Inhale 2 Puffs as instructed every 4 hours as needed for wheezing/shortness of breath. bupropion HCl (WELLBUTRIN ORAL) Take by mouth. predniSONE (DELTASONE) 20 mg tablet Take 2 tablets by mouth once daily for 5 days. fluticasone (FLONASE) 50 mcg/actuation nasal spray Use 2 Sprays in each nostril once daily. Rinse mouth after use. olopatadine (PATANOL) 0.1 % ophthalmic solution Use 1 Drop in both eyes twice daily. trimethoprim-polymyxin (POLYTRIM) 10,000 unit- 1 mg/mL ophthalmic solution Use 1 Drop in the left eye four times daily. No family history on file. Social History Tobacco Use Smoking status: Current Every Day Smoker Packs/day: 1.00 Types: Cigarettes Smokeless tobacco: Never Used Tobacco comment: 1 pack per week Substance Use Topics Alcohol use: Not on file Drug use: Not on file ROS Objective Blood pressure 122/80, pulse 75, temperature 36.1 C (97 F), temperature source Tympanic, resp. rate 16, weight 92.3 kg (203 lb 6.4 oz), SpO2 98 %. Physical Exam Constitutional: General: He is not in acute distress. Appearance: He is not toxic-appearing or diaphoretic. HENT: Head: Normocephalic and atraumatic. Nose: Congestion present. Eyes: General: Lids are normal. Right eye: No discharge. Left eye: No discharge. Conjunctiva/sclera: Right eye: Right conjunctiva is injected. Left eye: Left conjunctiva is injected. Cardiovascular: Rate and Rhythm: Normal rate and regular rhythm. Heart sounds: Normal heart sounds, S1 normal and S2 normal. Pulmonary: Effort: Pulmonary effort is normal. Breath sounds: Normal breath sounds. Neurological: Mental Status: He is alert and oriented to person, place, and time. Gait: Gait is intact. ASSESSMENT/PLAN: 1. Allergic conjunctivitis and rhinitis, bilateral - ICD9: 372.05, 477.9, ICD10: H10.13, J30.9 Allergic - see medication orders - course and contagiousness issues discussed, including hand washing. - Instructed to call if high fever, development of periorbital redness or swelling, eye pain, visual changes, concerns or if symptoms persist. - PREDNISONE 20 MG TABLET - FLUTICASONE PROPIONATE 50 MCG/ACTUATION NASAL SPRAY,SUSPENSION - OLOPATADINE 0.1 % EYE DROPS Agrees to plan Vaibhavly Felton APRN.CNP documented in this encounter [facility] 12-05-2021 Instructions Vaibhav Felton APRN.[facility]OTI - 12/05/2021 8:33 AM EDT Eye Allergies and Allergic Conjunctivitis The eyes are one of the most sensitive and vulnerable organs in the body. Airborne allergens and other particles can land directly on the surface of the eye, causing irritation and redness. Although tears constantly wash the eyes, they can't always keep out allergens like pollen or pet dander. Because of this, allergies that flare up in the eyes, also known as ocular allergies, are common. What Are Ocular Allergies? Eye allergies are no different than allergies that affect your sinuses, nose or lungs. When an allergen comes in contact with your eyes, your body releases histamine - a chemical produced in reaction to a substance that the immune system can't tolerate. Special cells called mast cells make histamine. These cells are present throughout the body but are highly concentrated in the eyes. Location of allergy symptoms depends somewhat on where the allergen has come into contact with your body. Ocular allergens tend to be airborne (as are most other allergens). The most frequent allergic triggers include: Pollen Pet hair or dander Dust Some medicines There also are some triggers that irritate the eyes but are not true allergies, such as: Cigarette smoke Perfume Diesel Exhaust What Is Allergic Conjunctivitis? Conjunctivitis, also known as pink eye, is an inflammation of the conjunctiva (the membrane lining under the eyelids) and can be caused by allergies or infections. Allergic conjunctivitis and conjunctivitis caused by an infection can be hard to distinguish. Both have similar symptoms, such as redness, itching and swelling in the eye area. However, when conjunctivitis is caused by allergies, both eyes are usually affected. Viral or bacterial conjunctivitis can affect either a single eye or both eyes. It is important to pinpoint whether someone has conjunctivitis because of allergies or infection since each condition has a different treatment. Common symptoms of allergic conjunctivitis are: Redness and itching under the eyelid Excessive watering Swelling of the eyeball Common symptoms of conjunctivitis associated with infection are: Feeling that eyelids are glued shut upon waking Sensitivity to light Pus on the surface of the eye Burning sensation Treatment If you have ocular allergies or any other kind of allergic disease, the most effective treatment is prevention: try to avoid the allergens that trigger symptoms. For many, this is easier said than done, especially if your triggers are airborne, such as pollen. When ocular allergies can't be controlled, there are several medications that may help relieve symptoms. Most of these treatments come in a topical form - such as eye drops or an ointment. Eye drops, also called tear substitutes, can help in two ways: (1) by physically washing away allergens; and (2) by moistening the eye, which can become dry and red when irritated. Eye drops that contain medications to help reduce allergy symptoms also are available. Topical Decongestants Some eye drops contain topical decongestants that constrict small blood vessels and help reduce eye redness. These eye drops are available without a prescription. If you use eye drops with topical decongestants, be careful not to use them for prolonged periods. Overuse of topical decongestants can lead to increased swelling and redness that can last even after you stop using the drops. This is known as a rebound effect. Topical decongestants, or any kind of eye drop containing chemicals that narrow blood vessels (called vasoconstrictors), shouldn't be used if you have glaucoma. Glaucoma is damage to the eye that results from increased pressure in the eyeball (also called intraocular pressure, or IOP). Vasoconstrictors can worsen this condition. Topical Antihistamines Eye drops containing antihistamines can reduce redness and swelling in the eye. Antihistamines block the effects of the chemical histamine, which is responsible for allergic symptoms like swelling, redness and itching. Mild antihistamine eye drops are available over the counter, but stronger ones are available by prescription. Helpful Strategies Chilling any topical medications can help relieve redness and itching of the eyes. In addition, using cold compresses can help reduce some of the discomfort associated with conjunctivitis. A washcloth soaked in cold water works well. Oral nonsteroidal anti-inflammatory drugs (NSAIDs), such as aspirin and ibuprofen-based medications, also can help reduce inflammation and symptoms like swelling in some patients. Steroids When topically administered medications like antihistamines and vasoconstrictors fail to help alleviate conjunctivitis symptoms, your doctor may prescribe topical steroids. Steroid eye drops can help control chronic and acute cases of conjunctivitis but should only be used as prescribed by your doctor. Steroids applied directly to the eye can cause a sharp increase in ocular pressure that can result in significant eye damage or glaucoma. Prolonged use of topical steroids in the eyes also can lead to cataracts. Cataracts form when the cornea on the surface of the eye gradually becomes opaque, causing blindness. Because steroids can promote the growth of viruses, your doctor will want to rule out viral conjunctivitis as the cause of your eye problems before prescribing topical steroids. Immunotherapy Immunotherapy, also known as allergy shots, is another option for treating allergic conjunctivitis. Immunotherapy is a process that gradually desensitizes you to your allergens. Tiny amounts of the allergen are injected under the skin over the course of several years. During immunotherapy, your body will begin to develop a normal immune response to the allergen, and you won't experience red, watery eyes every time you are around pets or pollen. Although immunotherapy may take several months to produce results, it can eventually greatly diminish the need for eye drops or other medication. When To See an Windows Systems Admin You should consult with an collection systems administrator-minute clerk if you persistently have red, itchy, watery eyes. Many times, with the help of a doctor, ocular allergies and conjunctivitis can be controlled. Copyright 2000 [employer] and [employer] documented in this encounter [facility] 07-12-2021 Note HNO ID: [id number] Author: Salo Curiel PA-C Service: ? Author Type: Physician Trial Attorney Type: Progress Notes Filed: 07/12/2021 1:50 PM Note Text: Subjective HPI HPI Alex Monreal is a 30 year old male who presents today for CC of fatigue, cough, rhinorrhea, congestion x 4-5 days. Has some SOB, but he usually attributes that to being a smoker but has not been smoking since he's been sick. Notes that he's currently staying in a assisted, and has been exposed to a few different people that were positive (was just told today 3 other residents are positive). Also needs to be cleared for work, as he's a principal product manager at [employer]. Symptoms include: Fever (?100.4F): No or Chills: Yes Cough: Yes Shortness of breath: Yes or Difficulty breathing: No Fatigue: Yes Muscle aches: Yes Headache: Yes New loss of smell or taste: No Sore throat: Yes Nasal congestion: Yes or Rhinorrhea: Yes Nausea: Yes or Vomiting: No Diarrhea: No OTC meds/remedies that patient has tried: nothing OTC . High risk category assessment No high risk factors Exposures: Sick contacts? Yes Family or close contacts with confirmed/probable COVID-19 in last 14 days? Yes BP 122/80 Pulse 82 Temp 36.6 ?C (97.9 ?F) (Tympanic) Resp 16 Wt 94.5 kg (208 lb 6.4 oz) SpO2 98% Social History Tobacco Use - Smoking status: Current Every Day Smoker Packs/day: 1.00 Types: Cigarettes - Smokeless tobacco: Never Used - Tobacco comment: 1 pack per week Substance Use Topics - Alcohol use: Not on file - Drug use: Not on file History reviewed. No pertinent past medical history. I have confirmed and edited as necessary, the [facility] Review of Systems All other systems reviewed and are negative. Objective BP 122/80 Pulse 82 Temp 36.6 ?C (97.9 ?F) (Tympanic) Resp 16 Wt 94.5 kg (208 lb 6.4 oz) SpO2 98% Physical Exam Vitals and nursing note reviewed. Constitutional: Appearance: He is ill-appearing (Mild; Generally fatigued appearance.). He is not toxic-appearing. HENT: Head: Normocephalic and atraumatic. Nose: No mucosal edema or rhinorrhea. Right Sinus: No maxillary sinus tenderness or frontal sinus tenderness. Left Sinus: No maxillary sinus tenderness or frontal sinus tenderness. Mouth/Throat: Pharynx: Uvula midline. No oropharyngeal exudate or posterior oropharyngeal erythema. Tonsils: No tonsillar abscesses. Cardiovascular: Rate and Rhythm: Normal rate and regular rhythm. Heart sounds: Normal heart sounds. Pulmonary: Effort: Pulmonary effort is normal. Breath sounds: Normal breath sounds. No decreased breath sounds, wheezing, rhonchi or rales. Musculoskeletal: Cervical back: Normal range of motion. Lymphadenopathy: Head: Right side of head: No submental, submandibular, tonsillar, preauricular, posterior auricular or occipital adenopathy. Left side of head: No submental, submandibular, tonsillar, preauricular, posterior auricular or occipital adenopathy. Cervical: No cervical adenopathy. Right cervical: No superficial or posterior cervical adenopathy. Left cervical: No superficial or posterior cervical adenopathy. Skin: General: Skin is warm and dry. Neurological: Mental Status: He is alert and oriented to person, place, and time. Psychiatric: Mood and Affect: Affect normal. ASSESSMENT/PLAN: 1. Viral syndrome - ICD9: 079.99, ICD10: B34.9 - Discussed viral etiology and rationale for treatment. Covid and flu testing ordered; Results will be released to [facility] in 24-48 hours. Discussed quarantine, social distancing, hand washing/proper hygiene. Rest, fluids, OTC medications discussed. - COVID WITH FLUA+B, ROUTINE Pt advised to see PCP if symptoms persist or progress. Reviewed red flags with patient and when to seek care sooner. The patient indicates understanding of these issues and agrees with the plan. Salo Curiel PA-C [facility] documented in this encounter [facility] [employer] Phone: evaluation note* Diagnosis Allergic conjunctivitis and rhinitis, bilateral- [facility] Acute cough- Primary Viral illness Unspecified viral infection, in conditions classified elsewhere and of unspecified site documented in this encounter [facility] Discharge instructions* Attachments The following attachments cannot be sent through Care Everywhere. * Alcohol - Drug - or Poison Ingestion (Faroese) [facility]: Summary Purpose Family History No Family History Records FoundNo Family History Records Found Advance Directives No Advanced Directives Records FoundNo Advanced Directives Records Found Health Concerns Infection Onset Date Last Indicated Resolved Time COVID-19 Rule-Out 07/04/2022 07/04/2022 07/04/2022 10:47 PM EST Additional Source Comments Reason for Visit (unrecogniz ed section and content) Reason Comments Eye Problem bilateral red and ir ritated eyes x 1 day Reason Comments Cough Chest congestion, na usea, ST, bodyaches x4 days Source Comments (unrecognize d section and content) In the event this informatio n is protected by the Federal Confidentiality of Alcohol and Drug Abuse Patient Records regulations: The Federal rules restrict any use of the information to criminally investigate or prosecute any alcohol or drug abuse patient.[facility] the event this information is protected by the Federal Confidentiality of Alcohol and Drug Abuse Patient Records regulations: The Federal rules restrict any use of the information to criminally investigate or prosecute any alcohol or drug abuse patient.[facility] (unrecognized sect ion and content) No Status Records FoundNo Status Records Found INFORMATION SOURCE (unrecogn ized section and content) DATE CREATED AUTHOR AUTHOR'S ISAAC ATION 02/19/2023 [facility] FOR RECORDS PERTAINING TO PATIENTS WHO ARE OR HAVE BEEN ENROLLED IN A CHEMICAL DEPENDENCY/SUBSTANCEABUSE PROGRAM, SOME INFORMATION MAY BE OMITTED. This clinical summary was aggregated from multiple sources. Caution should be exercised in using it in the provision of clinical care. This summary normalizes information from multiple sources, and as a consequence, information in this document may materially change the coding, format and clinical context of patient data. In addition, data may be omitted in some cases. CLINICAL DECISIONS SHOULD BE BASED ON THE PRIMARY CLINICAL RECORDS. [facility] [employer] [facility]. provides no warranty or guarantee of the accuracy or completeness of information in this document.
== END 2023-08-25 13:43 | disposition home or self-care (01) ==
PROVIDERS: Emergency Provider Emergency Medicine; Visit Provider Emergency Medicine
DX: S76.811A Strain of other specified muscles, fascia and tendons at thigh level, right thigh, initial encounter (principal); X58.XXXA Exposure to other specified factors, initial encounter; Y93.B9 Activity, other involving muscle strengthening exercises; F17.210 Nicotine dependence, cigarettes, uncomplicated
CPT/HCPCS: 73502; 99282

== ENCOUNTER 2025-06-04 18:05 | Emergency (ER) | payer OTHER, SELFPAY ==
[2025-06-04 18:06] VITALS: BP 132/76; PULSE 76; RESP 18; TEMP 36.3; O2SAT 100; BMI 23.6
[2025-06-04] MEDS: Lidocaine 1% (20 ml mdv) 20 ML Vial INFILT (18:42)
[2025-06-04 19:06] VITALS: BP 132/76; PULSE 70; RESP 18; TEMP 36.3; O2SAT 100
--- OUTSIDE RECORDS SUMMARY | 2025-06-04 19:32 | XMS RPT_ITS | CCD ---
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 [id number] [address] [place] [address] [place] Immature granulocytes (Bld) [#/Vol] 10*3/uL Normal <0.10 [place] Comment on above: Order Comment: Speci men Type: BLOOD SPECIMEN Ordering Facility: [facility] Address: [address] [place] [address] Performed By: #### 5 7021-8 #### [facility] CLIA [id number] [address] [place] [address] [place] Immature granulocytes/100 WBC (Bld) 0.2 % Normal [place] Comment on above: Order Comment: Speci men Type: BLOOD SPECIMEN Ordering Facility: [facility] Address: [address] [place] [address] Performed By: #### 5 7021-8 #### [facility] CLIA [id number] [address] [place] [address] [place] Lymphocytes (Bld) [#/Vol] 2.43 10*3/uL Normal 1.00-4.00 [place] Comment on above: Order Comment: Speci men Type: BLOOD SPECIMEN Ordering Facility: [facility] Address: [address] [place] [address] Performed By: #### 5 7021-8 #### [facility] CLIA [id number] [address] [place] [address] [place] Lymphocytes/100 WBC (Bld) 44.3 % Normal [place] Comment on above: Order Comment: Speci men Type: BLOOD SPECIMEN Ordering Facility: [facility] Address: [address] [place] [address] Performed By: #### 5 7021-8 #### [facility] CLIA [id number] [address] [place] [address] [place] MCH (RBC) [Entitic mass] 30.1 pg Normal 26.0-34.0 [place] Comment on above: Order Comment: Speci men Type: BLOOD SPECIMEN Ordering Facility: [facility] Address: [address] [place] [address] Performed By: #### 5 7021-8 #### [facility] CLIA [id number] [address] [place] [address] [place] MCHC (RBC) [Mass/Vol] 33.1 g/dL Normal 30.5-36.0 [facility] Comment on above: Order Comment: Speci men Type: BLOOD SPECIMEN Ordering Facility: [facility] Address: [address] [place] [address] Performed By: #### 5 7021-8 #### [id number] [address] [place] [address] [place] MCV (RBC) [Entitic vol] 91.1 fL Normal 80.0-100.0 [place] Comment on above: Order Comment: Speci men Type: BLOOD SPECIMEN Ordering Facility: [facility] Address: [address] [place] [address] Performed By: #### 5 7021-8 #### [facility] [id number] [address] [place] [address] [place] Monocytes (Bld) [#/Vol] 0.36 10*3/uL Normal <0.87 [place] Comment on above: Order Comment: Speci men Type: BLOOD SPECIMEN Ordering Facility: [facility] Address: [address] [place] [address] Performed By: #### 5 7021-8 #### [facility] [id number] [address] [place] [address] [place] Monocytes/100 WBC (Bld) 6.6 % Normal [place] Comment on above: Order Comment: Speci men Type: BLOOD SPECIMEN Ordering Facility: [facility] Address: [facility] [place] [address] Performed By: #### 5 7021-8 #### [facility] CLIA [id number] [address] [place] [address] [place] Neutrophils (Bld) [#/Vol] 2.45 10*3/uL Normal 1.45-7.50 [place] Comment on above: Order Comment: Speci men Type: BLOOD SPECIMEN Ordering Facility: [facility] Address: [address] [place] [address] Performed By: #### 5 7021-8 #### [facility] CLIA [id number] [address] [place] [address] [place] Neutrophils/100 WBC (Bld) 44.6 % Normal [place] Comment on above: Order Comment: Speci men Type: BLOOD SPECIMEN Ordering Facility: [facility] Address: [address] [place] [address] Performed By: #### 5 7021-8 #### [facility] CLIA [id number] [address] [place] [address] [place] Nucleated RBC (Bld) [#/Vol] 10*3/uL Normal <0.01 [place] Comment on above: Order Comment: Speci men Type: BLOOD SPECIMEN Ordering Facility: [facility] Address: [address] [place] [address] Performed By: #### 5 7021-8 #### [facility] CLIA [id number] [address] [place] [address] [place] Nucleated RBC/100 WBC (Bld) [Ratio] 0.0 /100 WBC Normal [place] Comment on above: Order Comment: Speci men Type: BLOOD SPECIMEN Ordering Facility: [facility] Address: [address] [place] [address] Performed By: #### 5 7021-8 #### [facility] CLIA [id number] [address] [place] [address] [place] Platelet mean volume (Bld) [Entitic vol] 11.2 fL Normal 9.0-12.7 [place] Comment on above: Order Comment: Speci men Type: BLOOD SPECIMEN Ordering Facility: [facility] Address: [address] [place] [address] Performed By: #### 5 7021-8 #### [facility] CLIA [id number] [address] [place] [address] [place] Platelets (Bld) [#/Vol] 228 10*3/uL Normal 150-400 [place] Comment on above: Order Comment: Speci men Type: BLOOD SPECIMEN Ordering Facility: [facility] Address: [address] [place] [address] Performed By: #### 5 7021-8 #### [facility] CLIA [id number] [address] [place] [address] [place] RBC (Bld) [#/Vol] 4.71 10*6/uL Normal 4.20-6.00 [facility] Comment on above: Order Comment: Speci men Type: BLOOD SPECIMEN Ordering Facility: [facility] Address: [address] [place] [address] Performed By: #### 5 7021-8 #### [facility] CLIA [id number] [address] [place] [address] [place] WBC (Bld) [#/Vol] 5.49 10*3/uL Normal 3.70-11.00 [facility] Comment on above: Order Comment: Speci men Type: BLOOD SPECIMEN Ordering Facility: [facility] Address: [address] [place] [address] Performed By: #### 5 7021-8 #### [facility] CLIA [id number] [address] [place] [address] [place] CNOVon 01-26-2025 CNOV Office Visit ([facility]) -------- ALEX MONREAL ([id number]) 1990 M Date Time Provider Department 01/26/25 10:45 AM YULIYA NICK During your visit today, we recorded the following information about you: Temperature Pulse Respiration Blood pressure 96.9 degrees 80/minute 16/minute 110/68 Weight 77.1 kg Yuliya Nick APRN.BRIM CURLER 01/26/2025 11:03 AM Signed [facility] Subjective Alex Monreal is a 34 year old male. Patient presents with: Eye Problem: irritation, swelling and drainage, sore throat x 1 week, cold sore HPI Bilateral Eye Discharge: - Onset: Approximately one week ago. - Initially began with inflammation and swelling of the upper eyelid. - Progressed to discharge in both eyes, more pronounced when wearing contact lenses. - Has been removing contact lenses to rest eyes; does not wear glasses. - Reports crusting in the morning and mild itching. - Last eye exam was less than a year ago. - Denies loss of vision, diplopia, or trauma to the eyes. -Denies foreign body feeling -Denies nausea/vomtiing Fatigue: - Noted increased fatigue during workouts and decreased recovery. - Describes fatigue as a lack of something, different from usual post-exercise fatigue. Sore Throat: - Reports a sore throat . - Denies significant cough, mild Denies ear or nose complaints Herpes Outbreak: - Noticed a herpes outbreak yesterday. -located above upper lip - Has had similar outbreaks in the past. - Believes the outbreak is indicative of a lowered immune system. Denies: - Sinus pressure. - Nausea, vomiting, diarrhea. - Ear pressure. No past medical history on file. No past surgical history on file. ALLERGIES Shellfish Derived and Seasonal Allergies MEDICATIONS acyclovir (ZOVIRAX) 400 mg tablet Take 1 tablet by mouth three times a day for 5 days. ciprofloxacin HCl (CILOXAN) 0.3 % ophthalmic solution Use 1-2 drops inside both lower eyelid(s) every 2 hours while awake for 2 days, then 1-2 drops every 4 hours for next 5 days. cholecalciferol (VITAMIN D-3) 5,000 unit tab Take 5,000 Units by mouth once daily. (Patient not taking: Reported on 01/26/2025) cyclobenzaprine (FLEXERIL) 10 mg tablet Take 1 tablet by mouth three times a day as needed for muscle spasm for up to 12 doses. (Patient not taking: Reported on 10/16/2024) fluticasone (FLONASE) 50 mcg/actuation nasal spray Use 2 Sprays in each nostril once daily. Rinse mouth after use. (Patient not taking: Reported on 10/16/2024) olopatadine (PATANOL) 0.1 % ophthalmic solution Use 1 Drop in both eyes twice daily. (Patient not taking: Reported on 02/15/2024) propranolol (INDERAL) 10 mg tablet Take 10 mg by mouth three times daily. (Patient not taking: Reported on 02/15/2024) lisdexamfetamine (VYVANSE) 20 mg chew Take by mouth. (Patient not taking: Reported on 02/15/2024) acamprosate calcium (ACAMPROSATE ORAL) Take by mouth. (Patient not taking: Reported on 02/15/2024) albuterol HFA (PROVENTIL HFA, VENTOLIN HFA) 90 mcg/actuation inhaler Inhale 2 Puffs as instructed every 4 hours as needed for wheezing/shortness of breath. (Patient not taking: Reported on 02/15/2024) bupropion HCl (WELLBUTRIN ORAL) Take by mouth. (Patient not taking: Reported on 02/15/2024) No family history on file. Social History Tobacco Use Smoking status: Every Day Current packs/day: 1.00 Types: Cigarettes Smokeless tobacco: Never Tobacco comments: 1 pack per week Review of Systems Constitutional: (+) fatigue Eyes: upper eyelid swelling, (+) ocular discharge, (+) eye crusting, (+) eye pruritus, (-) vision loss, (-) diplopia, (-) ocular trauma Ears/Nose/Mouth/Throat: (+) sore throat, (-) sinus pressure, (-) ear pressure Respiratory: (+) cough Gastrointestinal: (-) nausea, (-) vomiting, (-) diarrhea Skin: (+) lip sore Objective BP 110/68 Pulse 80 Temp 36.1 ?C (96.9 ?F) Resp 16 Wt 77.1 kg (169 lb 15.6 oz) SpO2 98% Physical Exam General: No acute distress. HEENT: Bilateral conjunctival very mild injection and , PERRLA. EOM intact +red reflex bilatera. + pharyngeal erythema. Adenopathy: +cervical Skin: Vesicular lesions noted above upper lip Lungs: CTA AP B/L Cardiac: Apical RRR Neuro: A AND O x 3 { 1. URI, acute (J06.9) 2. Conjunctivitis of both eyes, unspecified conjunctivitis type (H10.9) 3. Fatigue, unspecified type (R53.83) - Bilateral conjunctival discharge, crusting, and mild pruritus; strep test negative. - Start Polytrim ophthalmic drops, 1 drop in both eyes every 4 hours for 7 days. - Advised to avoid contact lens use during treatment and for 24 hours after completing the 5-day course; discussed rationale to prevent counterproductive treatment. - Ordered CBC, TSH, total testosterone, vitamin D, and BMP. 4. Does not have primary care provider (Z75.8) - Advised to establish care with a p (more content not included)... Normal [place] STREP A MOLECULAR (POC)on Procedural Control Valid [facility] Strep A (POCT) Negative Negative [facility] TSH SerPl-aCncon 01-26-2025 TSH Qn 1.070 m[IU]/L Normal 0.270-4.200 [place] Comment on above: Order Comment: Speci men Type: BLOOD SPECIMEN Ordering Facility: [facility] Address: [address] [place] [address] Performed By: #### 2 4321-2, 3016-3, 2986-8 #### [facility] CLIA [id number] [address] [place], [place] [address]K [id number] [place] [address] Testost SerPl-mCncon 07-29-2 025 Testosterone [Mass/Vol] 296 ng/dL Normal 193-824 [place] Comment on above: Order Comment: Speci men Type: BLOOD SPECIMEN Ordering Facility: [facility] Address: [address] [place] [address] Result Comment: A te stosterone level in the 193-320 ng/dL range with associated clinical symptoms is considered low and may indicate hypogonadism (from [facility] 2010 [id number]). Results >320 ng/dL are considered normal. Performed By: #### 2 4321-2, 3016-3, 2986-8 #### [facility] CLIA [id number] [address] [place] [address] CNOVon 10-16-2024 CNOV Office Visit ([facility] ) -------- ALEX MONREAL ([id number]) 1990 M Date Time Provider Department 10/16/24 12:30 PM WALTER LEMONS [facility] During your visit today, we recorded the following information about you: Temperature Pulse Respiration Blood pressure 97.6 degrees 84/minute 18/minute 117/76 Weight 78 kg Walter Lemons PA-C 10/16/2024 12:42 PM Signed [facility] Subjective Alex Monreal is a 34 year old male. Patient presents with: Eye Problem: Left eye pain, swelling discharge, red x 1 day, states removed contacted and had issues after same, Patient is a 34-year-old male who complains of acute onset of redness and swelling to his left upper and lower eyelids that occurred last evening. Patient does wear contact lenses and states that he noted his symptoms developing after he removed his left contact lens last evening. Patient reports eye irritation but denies acute changes to his vision. Patient also noted mild discharge to his left eye this morning. Patient has noted no pustule or other skin lesion to the margins of his left upper and lower eyelids. Patient denies injury or foreign body to his left eye. Patient states that his right eye is asymptomatic. Eye Problem Review of Systems Eyes: Positive for redness and itching. Redness and Swelling to Left Eyelids All other systems reviewed and are negative. Objective BP 117/76 Pulse 84 Temp 36.4 ?C (97.6 ?F) Resp 18 Wt 78 kg (171 lb 15.3 oz) SpO2 100% Physical Exam Vitals and nursing note reviewed. Constitutional: Appearance: Normal appearance. He is normal weight. HENT: Head: Normocephalic and atraumatic. Right Ear: External ear normal. Left Ear: External ear normal. Nose: Nose normal. Mouth/Throat: Mouth: Mucous membranes are moist. Pharynx: Oropharynx is clear. Eyes: General: Right eye: No discharge. Left eye: No discharge. Extraocular Movements: Extraocular movements intact. Conjunctiva/sclera: Conjunctivae normal. Pupils: Pupils are equal, round, and reactive to light. Comments: Erythema and edema is noted to the left superior and inferior eyelids. Eyelid margins are clear with no evidence of pustule, vesicle, hordeolum or other lesion. There is no matting or discharge to the left eye. Left conjunctiva is mildly injected. Left periorbital skin is clear without erythema or edema. Exam of the right conjunctiva, eyelids and periorbital skin is unremarkable. Pupils are equal, round and reactive to light and accommodation and the patient demonstrates full extraocular range of motion bilaterally. Cardiovascular: Rate and Rhythm: Normal rate. Pulses: Normal pulses. Pulmonary: Effort: Pulmonary effort is normal. Breath sounds: Normal breath sounds. Musculoskeletal: Cervical back: Normal range of motion and neck supple. Skin: General: Skin is warm and dry. Capillary Refill: Capillary refill takes less than 2 seconds. Neurological: General: No focal deficit present. Mental Status: He is alert and oriented to person, place, and time. Psychiatric: Mood and Affect: Mood normal. Behavior: Behavior normal. Thought Content: Thought content normal. Judgment: Judgment normal. Assessment Physical exam findings as noted above. Patient was provided with a prescription for erythromycin 0.5% ophthalmic ointment and instructions for application were discussed. Patient was clearly advised to schedule an appointment with his director/ophthalmolog ist if he notes no improvement in his symptoms. Additional supportive care was discussed and patient verbalizes clear understanding of same. CLINICAL IMPRESSION: Acute Blepharitis Left Superior/Inferior Eyelids ASSESSMENT/PLAN: 1. Acute blepharitis - ICD9: 373.00, ICD10: H01.009 - ERYTHROMYCIN 5 MG/GRAM (0.5 %) EYE OINTMENT Walter Lemons PA-C Disposition The patient was discharged. Allergies As of Date: 10/16/2024 Noted Allergy Reaction SHELLFISH DERIVED 06/06/2016 7 - Swelling 10 - Anaphylaxis SEASONAL ALLERGIES 10/16/2024 14 - Other: See Comments Date Reviewed: 10/16/2024 Reviewed by: Radha Pearl LPN - Fully Assessed Reason for Visit: Eye Problem [43] Cmt: Left eye pain, swelling discharge, red x 1 day, states removed contacted and had issues after same, Primary Visit Diagnosis:Acute blepharitis [H01.009] Order(s):erythromycin (ROMYCIN) 5 mg/gram (0.5 %) ophthalmic ointmentUse 1 application in the left eye four times daily for 7 days.Disp: 3.5 gRfl: 0 Prescriptions as of 10/16/2024 - cholecalciferol (VITAMIN D-3) 5,000 unit tab Take 5,000 Units by mouth once daily. - erythromycin (ROMYCIN) 5 mg/gram (0.5 %) ophthalmic ointment Use 1 application in the left eye four times daily for 7 days. - cyclobenzaprine (FLEXERIL) 10 mg tablet Take 1 tablet by mouth three times a day as needed for muscle spasm for up to (more content not included)... Normal [place] CNOVon 02-15-2024 CNOV Office Visit ([facility] ) -------- ALEX MONREAL ([id number]) 1990 M Date Time Provider Department 02/15/24 1:00 PM ROMULOMELAMARGARITA Strange [facility] During your visit today, we recorded the following information about you: Temperature Pulse Respiration Blood pressure 96 degrees 67/minute 18/minute 118/84 Weight 83 kg RomuloMargarita carlisle AMADEO 02/15/2024 1:16 PM Signed This note was created using [employer]. Subjective Alex Monreal is a 33 year old male. HPI Pt has had low back pain since weight lifting about 10 days ago. He now feels as though his back is weak with certain ranges of motion. He notes that he will occasionally get sharp stabbing pain but usually there is just a dull ache in his back. He otherwise denies any nausea vomiting fever loss of control of bowel or bladder. Patient also notes symptoms consistent with outbreak of cold sore on his lower lip. Requesting valacyclovir. Review of Systems Genitourinary: Negative for decreased urine volume, dysuria and frequency. Musculoskeletal: Positive for back pain. Objective BP 118/84 Pulse 67 Temp (!) 35.6 ?C (96 ?F) Resp 18 Wt 83 kg (182 lb 15.7 oz) SpO2 99% Physical Exam Vitals and nursing note reviewed. Constitutional: General: He is not in acute distress. Appearance: Normal appearance. He is not ill-appearing. HENT: Head: Normocephalic. Pulmonary: Effort: Pulmonary effort is normal. Musculoskeletal: General: Normal range of motion. Cervical back: Normal range of motion. Comments: No lumbar vertebral tenderness. No specific point tenderness over the bilateral lower back area. Patient ambulates easily in the room and appears to have full range of motion with his back. Skin: General: Skin is warm and dry. Neurological: General: No focal deficit present. Mental Status: He is alert. Psychiatric: Mood and Affect: Mood normal. Behavior: Behavior normal. Assessment and Plan ASSESSMENT/PLAN: 1. Strain of lumbar region, initial encounter - ICD9: 847.2, ICD10: S39.012A (primary diagnosis) Lumbosacral sprain - Prednisone burst- see orders -Patient was also given prescriptions for muscle relaxer and steroids. I instructed him to avoid NSAID use during the steroid dose. -Patient was instructed to slowly resume activities as tolerated doing gentle stretching exercises. - CYCLOBENZAPRINE 10 MG TABLET - PREDNISONE 50 MG TABLET 2. Recurrent cold sores - ICD9: 054.9, ICD10: B00.1 Patient given valacyclovir as noted below for preventative outbreak of cold sore. - VALACYCLOVIR 1 GRAM TABLET Margarita Banda APRN.BRIM CURLER Allergies As of Date: 02/15/2024 (No Known Allergies) Date Reviewed: 02/15/2024 Reviewed by: Margarita Banda APRN.BRIM CURLER - Fully Assessed Reason for Visit: Fatigue [46] Cmt: Lower mid back pain x 1.5 weeks Cold sore on bottom lip x 1 day Primary Visit Diagnosis:Strain of lumbar region, initial encounter [S39.012A] Other Visit Diagnosis:Recurrent cold sores [B00.1] Order(s):cyclobenzaprine (FLEXERIL) 10 mg tabletTake 1 tablet by mouth three times a day as needed for muscle spasm for up to 12 doses.Disp: 12 tabletRfl: 0 predniSONE (DELTASONE) 50 mgTake 1 tablet by mouth once daily for 5 days.Disp: 5 tabletRfl: 0 valACYclovir (VALTREX) 1 gram tabletTake 1 tablet by mouth two times a day for 7 days.Disp: 14 tabletRfl: 0 Prescriptions as of 02/15/2024 - cyclobenzaprine (FLEXERIL) 10 mg tablet Take 1 tablet by mouth three times a day as needed for muscle spasm for up to 12 doses. - predniSONE (DELTASONE) 50 mg Take 1 tablet by mouth once daily for 5 days. - valACYclovir (VALTREX) 1 gram tablet Take 1 tablet by mouth two times a day for 7 days. - fluticasone (FLONASE) 50 mcg/actuation nasal spray Use 2 Sprays in each nostril once daily. Rinse mouth after use. - olopatadine (PATANOL) 0.1 % ophthalmic solution Use 1 Drop in both eyes twice daily. - propranolol (INDERAL) 10 mg tablet Take 10 mg by mouth three times daily. - lisdexamfetamine (VYVANSE) 20 mg chew Take by mouth. - acamprosate calcium (ACAMPROSATE ORAL) Take by mouth. - albuterol HFA (PROVENTIL HFA, VENTOLIN HFA) 90 mcg/actuation inhaler Inhale 2 Puffs as instructed every 4 hours as needed for wheezing/shortness of breath. - bupropion HCl (WELLBUTRIN ORAL) Take by mouth. - trimethoprim-polymyxin (POLYTRIM) 10,000 unit- 1 mg/mL ophthalmic solution Use 1 Drop in the left eye four times daily. Problem List As Of Date: 02/15/2024 (None) Prescriptions ordered this encounter Disp Refills Start End CYCLOBENZAPRINE 10 MG TABLET 12 t* 0 02/15/2024 Route: ORAL Sig: Take 1 tablet by mouth three times a day as needed for muscle spasm for up to 12 doses. PREDNISONE 50 MG TABLET 5 ta* 0 02/15/2024 02/20/2024 Route: ORAL Sig: Take 1 tablet by mouth once daily for 5 days. VALACYCLOVIR 1 GRAM TABLET 14 t* 0 02/15/2024 (more content not included)... Normal [place] CBC with Diffon 02-12-2023 Abs. Basophil 0.06 k/uL Normal 0.00-0.20 [facility] Comment on above: Performed By: #### C P, MG, TSH, T4, CBCWD, CK, EDTOX #### [address] [address] Smelting Engineer: Vikram Kearney MD Abs.Imm.Granulocyte 0.03 k/uL Normal 0.00-0.58 [facility] Comment on above: Performed By: #### C P, MG, TSH, T4, CBCWD, CK, EDTOX #### [address] [place] [address] Smelting Engineer: Vikram Kearney MD Abs.Neutrophil (Seg) 3.96 k/uL Normal 1.80-7.30 [facility] Comment on above: Performed By: #### C P, MG, TSH, T4, CBCWD, CK, EDTOX #### [address] [address] Smelting Engineer: Vikram Kearney MD Basophils/100 WBC (Bld) 1 % Normal 0.0-2.0 [facility] Comment on above: Performed By: #### C P, MG, TSH, T4, CBCWD, CK, EDTOX #### [place] [address] Smelting Engineer: Vikram Kearney MD Eosinophils (Bld) [#/Vol] 0.25 10*3/uL Normal 0.05-0.50 [facility] Comment on above: Performed By: #### C P, MG, TSH, T4, CBCWD, CK, EDTOX #### [place] [address] Smelting Engineer: Vikram Kearney MD Eosinophils/100 WBC (Bld) 3 % Normal 0-6 [facility] Comment on above: Performed By: #### C P, MG, TSH, T4, CBCWD, CK, EDTOX #### [place] [address] Smelting Engineer: Vikram Kearney MD Erythrocyte distribution width (RBC) [Ratio] 13.2 % Normal 11.5-15.0 [facility] Comment on above: Performed By: #### C P, MG, TSH, T4, CBCWD, CK, EDTOX #### [place] [address] Smelting Engineer: Vikram Kearney MD Hematocrit (Bld) [Volume fraction] 44.4 % Normal 37.0-54.0 [facility] Comment on above: Performed By: #### C P, MG, TSH, T4, CBCWD, CK, EDTOX #### [place] [address] Smelting Engineer: Vikram Kearney MD Hemoglobin (Bld) [Mass/Vol] 14.4 g/dL Normal 12.5-16.5 [facility] Comment on above: Performed By: #### C P, MG, TSH, T4, CBCWD, CK, EDTOX #### [address] [place] [address] Smelting Engineer: Vikram Kearney MD Immature granulocytes/100 WBC (Bld) 0 % Normal 0.0-5.0 [facility] Comment on above: Performed By: #### C P, MG, TSH, T4, CBCWD, CK, EDTOX #### [place] [address] Smelting Engineer: Vikram Kearney MD Lymphocytes (Bld) [#/Vol] 3.46 10*3/uL Normal 1.50-4.00 [facility] Comment on above: Performed By: #### C P, MG, TSH, T4, CBCWD, CK, EDTOX #### [place] [address] Smelting Engineer: Vikram Kearney MD Lymphocytes/100 WBC (Bld) 41 % Normal 20.0-42.0 [facility] Comment on above: Performed By: #### C P, MG, TSH, T4, CBCWD, CK, EDTOX #### [place] [address] Smelting Engineer: Vikram Kearney MD MCH (RBC) [Entitic mass] 29.4 pg Normal 26.0-35.0 [facility] Comment on above: Performed By: #### C P, MG, TSH, T4, CBCWD, CK, EDTOX #### [place] [address] Smelting Engineer: Vikram Kearney MD MCHC (RBC) [Mass/Vol] 32.4 g/dL Normal 32.0-34.5 [facility] Comment on above: Performed By: #### C P, MG, TSH, T4, CBCWD, CK, EDTOX #### [address] [place] [address] Smelting Engineer: Vikram Kearney MD MCV (RBC) [Entitic vol] 90.8 fL Normal 80.0-99.9 [facility] Comment on above: Performed By: #### C P, MG, TSH, T4, CBCWD, CK, EDTOX #### [place] [address] Smelting Engineer: Vikram Kearney MD Monocytes (Bld) [#/Vol] 0.78 10*3/uL Normal 0.10-0.95 [facility] Comment on above: Performed By: #### C P, MG, TSH, T4, CBCWD, CK, EDTOX #### [address] [place] [address] Smelting Engineer: Vikram Kearney MD Monocytes/100 WBC (Bld) 9 % Normal 2.0-12.0 [facility] Comment on above: Performed By: #### C P, MG, TSH, T4, CBCWD, CK, EDTOX #### [address] [place] [address] Smelting Engineer: Vikram Kearney MD Neutrophil (Seg) 46 % Normal 43.0-80.0 [facility] Comment on above: Performed By: #### C P, MG, TSH, T4, CBCWD, CK, EDTOX #### [address] [place] [address] Smelting Engineer: Vikram Kearney MD Platelet mean volume (Bld) [Entitic vol] 11.8 fL Normal 7.0-12.0 [facility] Comment on above: Performed By: #### C P, MG, TSH, T4, CBCWD, CK, EDTOX #### [address] [place] [address] Smelting Engineer: Vikram Kearney MD Platelets (Bld) [#/Vol] 236 10*3/uL Normal 130-450 [facility] Comment on above: Performed By: #### C P, MG, TSH, T4, CBCWD, CK, EDTOX #### [address] [place] [address] Smelting Engineer: Vikram Kearney MD RBC (Bld) [#/Vol] 4.89 10*6/uL Normal 3.80-5.80 [facility] Comment on above: Performed By: #### C P, MG, TSH, T4, CBCWD, CK, EDTOX #### [address] [place] [address] Smelting Engineer: Vikram Kearney MD WBC (Bld) [#/Vol] 8.5 10*3/uL Normal 4.5-11.5 [facility] Comment on above: Performed By: #### C P, MG, TSH, T4, CBCWD, CK, EDTOX #### [address] [place] [address] Smelting Engineer: Vikram Kearney MD Comp Metabolic Profon 2022 Albumin [Mass/Vol] 4.8 g/dL Normal 3.5-5.2 [facility] Comment on above: Performed By: #### C P, MG, TSH, T4, CBCWD, CK, EDTOX #### [address] [place], [place] [id number] Smelting Engineer: Vikram Kearney MD Alkaline Phos 80 U/L Normal 40-129 [facility] Comment on above: Performed By: #### C P, MG, TSH, T4, CBCWD, CK, EDTOX #### [address] [place] [address] Smelting Engineer: Vikram Kearney MD ALT [Catalytic activity/Vol] 20 U/L Normal 0-40 [facility] Comment on above: Performed By: #### C P, MG, TSH, T4, CBCWD, CK, EDTOX #### [address] [place] [address] Smelting Engineer: Vikram Kearney MD Anion gap [Moles/Vol] 11 mmol/L Normal 7-16 [facility] Comment on above: Performed By: #### C P, MG, TSH, T4, CBCWD, CK, EDTOX #### [address] [place] [address] Smelting Engineer: Vikram Kearney MD AST [Catalytic activity/Vol] 21 U/L Normal 0-39 [facility] Comment on above: Performed By: #### C P, MG, TSH, T4, CBCWD, CK, EDTOX #### [address] [place] [address] Smelting Engineer: Vikram Kearney MD Bilirubin [Mass/Vol] 0.7 mg/dL Normal 0.0-1.2 [facility] Comment on above: Performed By: #### C P, MG, TSH, T4, CBCWD, CK, EDTOX #### [address] [place] [address] Smelting Engineer: Vikram Kearney MD Calcium [Mass/Vol] 9.4 mg/dL Normal 8.6-10.2 [facility] Comment on above: Performed By: #### C P, MG, TSH, T4, CBCWD, CK, EDTOX #### [address] [place] [address] Smelting Engineer: Vikram Kearney MD Chloride [Moles/Vol] 100 mmol/L Normal 98-107 [facility] Comment on above: Performed By: #### C P, MG, TSH, T4, CBCWD, CK, EDTOX #### [address] [place] [address] Smelting Engineer: Vikram Kearney MD CO2 [Moles/Vol] 24 mmol/L Normal 22-29 [facility] Comment on above: Performed By: #### C P, MG, TSH, T4, CBCWD, CK, EDTOX #### [address] [place] [address] Smelting Engineer: Vikram Kearney MD Creatinine [Mass/Vol] 0.9 mg/dL Normal 0.70-1.20 [facility] Comment on above: Performed By: #### C P, MG, TSH, T4, CBCWD, CK, EDTOX #### [address] [place] [address] Smelting Engineer: Vikram Kearney MD GFR/1.73 sq M.predicted among non-blacks MDRD (S/P/Bld) [Vol rate/Area] mL/min/{1.73_m2} Normal >60 [facility] Comment on above: Result Comment: These results are not intended for use in patients <18 years of age. eGFR results are calculated without a race factor using the 2020 CKD-EPI equation. Careful clinical correlation is recommended, particularly when comparing to results calculated using previous equations. The CKD-EPI equation is less accurate in patients with extremes of muscle mass, extra-renal metabolism of creatine, excessive creatine ingestion, or following therapy that affects renal tubular secretion. Performed By: #### C P, MG, TSH, T4, CBCWD, CK, EDTOX #### [address] [place] [address] Smelting Engineer: Vikram Kearney MD Glucose [Mass/Vol] 95 mg/dL Normal 74-99 [facility] Comment on above: Performed By: #### C P, MG, TSH, T4, CBCWD, CK, EDTOX #### [address] [place] [address] Smelting Engineer: Vikram Kearney MD Potassium [Moles/Vol] 3.1 mmol/L Low 3.5-5.0 [facility] Comment on above: Performed By: #### C P, MG, TSH, T4, CBCWD, CK, EDTOX #### [address] [address] Smelting Engineer: Vikram Kearney MD Protein [Mass/Vol] 7.5 g/dL Normal 6.4-8.3 [facility] Comment on above: Performed By: #### C P, MG, TSH, T4, CBCWD, CK, EDTOX #### [address] [place] [address] Smelting Engineer: Vikram Kearney MD Sodium [Moles/Vol] 135 mmol/L Normal 132-146 [facility] Comment on above: Performed By: #### C P, MG, TSH, T4, CBCWD, CK, EDTOX #### [address] [place] [address] Smelting Engineer: Vikram Kearney MD Urea nitrogen [Mass/Vol] 11 mg/dL Normal 6-20 [facility] Comment on above: Performed By: #### C P, MG, TSH, T4, CBCWD, CK, EDTOX #### [address] [place] [address] Smelting Engineer: Vikram Kearney MD Creatine Kinaseon 02-12-2023 CK [Catalytic activity/Vol] 216 U/L High 20-200 [facility] Comment on above: Performed By: #### C P, MG, TSH, T4, CBCWD, CK, EDTOX #### [address] [address] Smelting Engineer: Vikram Kearney MD Drug Scr, Abuse, Uron 2022 Amphetamine(s),Ur Positive Abnormal NEG [facility] Comment on above: Result Comment: Cuto ff: 1000 ng/mL High concentrations of ephedrine/pseudoephedrine or phenylpropanolamine may cause false positive results for amphetamine. Therefore, confirmatory testing for amphetamine should be considered if clinically indicated. Performed By: #### D AU, UA #### [place] [address] Smelting Engineer: Vikram Kearney MD Barbiturate(s),Ur Negative Normal NEG [facility] Comment on above: Result Comment: Cuto ff: 200 ng/ml Performed By: #### D AU, UA #### [address] [place] [address] Smelting Engineer: Vikrma Kearney MD Benzodiazepine(s) Negative Normal NEG [facility] Comment on above: Result Comment: Cuto ff: 200 ng/ml Performed By: #### D AU, UA #### [address] [place] [address] Smelting Engineer: Vikram Kearney MD Buprenorphrine, Ur Negative Normal NEG [facility] Comment on above: Result Comment: Cuto ff: 5 ng/ml Performed By: #### D AU, UA #### [address] [place] [address] Smelting Engineer: Vikram Kearney MD Cannabinoid(s),Ur Positive Abnormal NEG [facility] Comment on above: Result Comment: Cuto ff: 50 ng/ml Performed By: #### D AU, UA #### [address] [place] [address] Smelting Engineer: Vikram Kearney MD Cocaine Metabolite Negative Normal NEG [facility] Comment on above: Result Comment: Cuto ff: 300 ng/ml Performed By: #### D AU, UA #### [address] [place] [address] Smelting Engineer: Vikram Kearney MD Fentanyl, Urine Negative Normal NEG [facility] Comment on above: Result Comment: Cuto ff: 1.0 ng/ml Performed By: #### D AU, UA #### [address] [place] [address] Smelting Engineer: Vikram Kearney MD Interpretive Info These drug screen results are for medical purposes only and should not be Normal [facility] Comment on above: Result Comment: cons idered definitive or confirmed. The drug methodology concentration value must be greater than or equal to the cutoff to be reported as positive. Confirmtory testing orders and/or interpretive sceening questions can be directed to toxicology at [phone]. The absence of expected drug(s) and/or metabolite(s) may be due to inappropriate timing of specimen collection relative to drug administration, poor drug absorption, diluted/adulterated urine, or limitations of screening methodology. Performed By: #### D AU, UA #### [address] [place] [address] Smelting Engineer: Vikram Kearney MD Methadone Ql (U) Negative Normal NEG [facility] Comment on above: Result Comment: Cuto ff: 300 ng/ml Performed By: #### D AU, UA #### [address] [place] [address] Smelting Engineer: Vikram Kearney MD Opiate(s), Ur Negative Normal NEG [facility] Comment on above: Result Comment: Cuto ff: 300 ng/ml Note: The Opiate screen is not intended to detect Oxycodone. Performed By: #### D AU, UA #### [address] [address] Smelting Engineer: Vikram Kearney MD Oxycodone, Urine Positive Abnormal NEG [facility] Comment on above: Result Comment: Cuto ff: 100 ng/ml Performed By: #### D AU, UA #### [address] [place] [address] Smelting Engineer: Vikram Kearney MD Phencyclidine, Ur Negative Normal NEG [facility] Comment on above: Result Comment: Cuto ff: 25 ng/ml Performed By: #### D BRIE, UA #### [address] [address] Smelting Engineer: Vikram Kearney MD Magnesiumon 02-12-2023 Magnesium [Mass/Vol] 2.2 mg/dL Normal 1.6-2.6 [facility] Comment on above: Performed By: #### C P, MG, TSH, T4, CBCWD, CK, EDTOX #### [address] [place] [address] Smelting Engineer: Vikram Kearney MD Thyroid Stim. Horm.on 2022 Thyroid Stim. Horm. 0.96 uIU/mL Normal 0.27-4.20 [facility] Comment on above: Performed By: #### C P, MG, TSH, T4, CBCWD, CK, EDTOX #### [address] [address] Smelting Engineer: Vikram Kearney MD Thyroxine T4on 02-12-2023 T4 [Mass/Vol] 7.5 ug/dL Normal 4.5-11.7 [facility] Comment on above: Performed By: #### C P, MG, TSH, T4, CBCWD, CK, EDTOX #### [place] [address] Smelting Engineer: Vikram Kearney MD Tox Scr, Bld, EDon 3 Acetaminophen [Mass/Vol] ug/mL Low 10.0-30.0 [facility] Comment on above: Performed By: #### C P, MG, TSH, T4, CBCWD, CK, EDTOX #### [place] [address] Smelting Engineer: Vikram Kearney MD Ethanol [Mass/Vol] mg/dL Normal <10 [facility] Comment on above: Performed By: #### C P, MG, TSH, T4, CBCWD, CK, EDTOX #### [place] [address] Smelting Engineer: Vikram Kearney MD Salicylate <0.3 Normal 0.0-30.0 [facility] Comment on above: Performed By: #### C P, MG, TSH, T4, CBCWD, CK, EDTOX #### [place] [address] Smelting Engineer: Vikram Kearney MD Toxic Tricyclic Sc,Bl Negative Normal NEG [facility] Comment on above: Result Comment: Cuto ff: 300 ng/ml Performed By: #### C P, MG, TSH, T4, CBCWD, CK, EDTOX #### [place] [address] Smelting Engineer: Vikram Kearney MD Urinalysis, Routineon 2022 Bilirubin, SemiQt,Ur Negative Normal NEG [facility] Comment on above: Performed By: #### D AU, UA #### [facility] [address] [place] [address] Smelting Engineer: Vikram Kearney MD Blood, Urine Negative Normal NEG [facility] Comment on above: Performed By: #### D AU, UA #### [place] [address] [place] [address] Smelting Engineer: Vikram Kearney MD Clarity (U) Clear Normal CLEAR [facility] Comment on above: Performed By: #### D AU, UA #### [place] [address] [place] [address] Smelting Engineer: Vikram Kearney MD Color (U) Yellow Normal YEL [facility] Comment on above: Performed By: #### D AU, UA #### [place] [address] [place] [address] Smelting Engineer: Vikram Kearney MD Comment Microscopic exam not performed based on chemical results unless requested in Normal [facility] Comment on above: Result Comment: orig inal order. Performed By: #### D AU, UA #### [place] [address] [place] [address] Smelting Engineer: Vikram Kearney MD Glucose Ql (U) Negative Normal NEG [facility] Comment on above: Performed By: #### D AU, UA #### [facility] [address] [place] [address] Smelting Engineer: Vikram Kearney MD Ketones Ql (U) Negative Normal NEG [facility] Comment on above: Performed By: #### D AU, UA #### [facility] [address] [place] [address] Smelting Engineer: Vikram Kearney MD Leukocyte esterase Test strip Ql (U) Negative Normal NEG [facility] Comment on above: Performed By: #### D AU, UA #### [address] [place] [address] Smelting Engineer: Vikram Kearney MD Nitrite,Ur Negative Normal NEG [facility] Comment on above: Performed By: #### D AU, UA #### [address] [place] [address] Smelting Engineer: Vikram Kearney MD PH,Ur 6.5 Normal 5.0-9.0 [facility] Comment on above: Performed By: #### D AU, UA #### [address] [place] [address] Smelting Engineer: Vikram Kearney MD Protein Ql (U) Negative Normal NEG [facility] Comment on above: Performed By: #### D AU, UA #### [address] [place] [address] Smelting Engineer: Vikram Kearney MD Spec. [place],Ur <1.005 Low 1.005-1.030 [facility] Comment on above: Performed By: #### D AU, UA #### [address] [place] [address] Smelting Engineer: Vikram Kearney MD Urobilinogen,Ur 0.2 EU/dL Normal 0.0-1.0 [facility] Comment on above: Performed By: #### D AU, UA #### [address] [place] [address] Smelting Engineer: Vikram Kearney MD Absolute lymphocyte countOrd ered By: Brad Calero on 02-10-2023 Lymphocytes Auto (Unsp spec) [#/Vol] 2.44 10*3/uL 0.83-4.51 [facility] Alcohol, Blood (Medical)-Ser umon 02-10-2023 SERUM ETOH < 3.0 Normal [facility] Comment on above: Result Comment: The serum:whole blood ethanol ratio is approximately 1.14 and varies slightly with hematocrit. Medical Alcohol reference interval and critical value in non-tolerant individuals; 50 - 100 Impairment 100 Intoxication 100 - 250 Severe Poisoning 250 - 400 Deep/possible fatal coma Performed By: #### L 505.5000, L100.0100, L500.4050, L501.9100 #### [facility] [address] [place], [address] Basophil percentageOrdered B y: Brad Calero on 02-10-2023 Basophils/100 WBC (Bld) 0.6 % 0-1 [facility] Bilirubin [Mass/Vol] 1.00 mg/dL 0.20-1.00 [facility] Comment on above: For patients on eltr ombopag therapy, use of Dimension [place] TBIL is not recommended. Chloride [Moles/Vol] 105 mmol/L 98-107 [facility] Eosinophils/100 WBC (Bld) 2.3 % 0-5 [facility] Glucose [Mass/Vol] 101 mg/dL 74-[address] [facility] Comment on above: Fasting Glucose resu lt from 100 to 125 mg/dL suggests IMPAIRED HOMEOSTASIS per A.D.A. criteria. Neutrophils (Bld) [#/Vol] 5.0 10*3/uL 2.0-7.7 [facility] Neutrophils/100 WBC (Bld) 60.2 % 47-70 [facility] Potassium [Moles/Vol] 2.9 mmol/L 3.5-5.1 [facility] Protein [Mass/Vol] 7.9 g/dL 6.4-8.[address] [facility] Sodium [Moles/Vol] 141 mmol/L 136-[address] [facility] WBC (Bld) [#/Vol] 8.3 10*3/uL 4.4-11.[address] [facility] Blood erythrocytes count (nu mber/volume)Ordered By: Brad Calero on 02-10-2023 RBC (Bld) [#/Vol] 5.08 10*6/uL 4.6-6.2 [facility] Blood hemoglobin measurement (mass/volume)Ordered By: Brad Calero on 02-10-2023 Hemoglobin (Bld) [Mass/Vol] 15.0 g/dL 13.0-16.5 [facility] Blood lymphocytes/100 leukoc ytesOrdered By: Brad Calero on 02-10-2023 Lymphocytes/100 WBC (Bld) 29.5 % 19-41 [facility] Blood monocytes/100 leukocyt esOrdered By: Brad Calero on 02-10-2023 Monocytes/100 WBC (Bld) 7.2 % 0-10 [facility] Blood platelet mean volumeOr dered By: Brad Calero on 02-10-2023 Platelet mean volume (Bld) [Entitic vol] 12.2 fL 6.2-12.0 [facility] CBC W/Diff, Automatedon 01-29 Absolute Lymph 2.44 X10 3/uL Normal 0.83-4.51 [facility] Comment on above: Performed By: #### L 505.5000, L100.0100, L500.4050, L501.9100 #### [facility] [address] [place], [address] Absolute Neut 5.0 X10 3/uL Normal 2.0-7.7 [facility] Comment on above: Performed By: #### L 505.5000, L100.0100, L500.4050, [id number] #### [facility] [address] [place], [address] Basophils/100 WBC (Bld) 0.6 % Normal 0-1 [facility] Comment on above: Performed By: #### L 505.5000, L100.0100, L500.4050, [id number] #### [facility] [address] [place], [address] Eosinophils/100 WBC (Bld) 2.3 % Normal 0-5 [facility] Comment on above: Performed By: #### L 505.5000, L100.0100, L500.4050, [id number] #### [facility] [address] [place], [address] Erythrocyte distribution width (RBC) [Ratio] 13.3 % Normal 11.6-14.6 [facility] Comment on above: Performed By: #### L 505.5000, L100.0100, L500.4050, [id number] #### [facility] [address] [place], [address] Hematocrit (Bld) [Volume fraction] 46.0 % Normal 40-54 [facility] Comment on above: Performed By: #### L 505.5000, L100.0100, L500.4050, [id number] #### [facility] [address] [place], [address] Hemoglobin (Bld) [Mass/Vol] 15.0 g/dL Normal 13.0-16.5 [facility] Comment on above: Performed By: #### L 505.5000, L100.0100, L500.4050, [id number] #### [facility] [address] [place], [address] IG% 0.200 Normal 0.0-0.9 [facility] Comment on above: Result Comment: IG% - Immature Granulocytes (promyelocytes, myelocytes and metamyelocytes) > 1% indicates that a LEFT SHIFT is Present. Performed By: #### L 505.5000, L100.0100, L500.4050, L501.9100 #### [facility] [address] [place], [address] Lymphocytes/100 WBC (Bld) 29.5 % Normal 19-41 [facility] Comment on above: Performed By: #### L 505.5000, L100.0100, L500.4050, [id number] #### [facility] [address] [place], [address] MCH (RBC) [Entitic mass] 29.5 pg Normal 27.0-32.0 [facility] Comment on above: Performed By: #### L 505.5000, L100.0100, L500.4050, L501.9100 #### [facility] [address] [place], [address] MCHC (RBC) [Mass/Vol] 32.6 g/dL Normal 32-36 [facility] Comment on above: Performed By: #### L 505.5000, L100.0100, L500.4050, [id number] #### [facility] [address] [place], [address] MCV (RBC) [Entitic vol] 90.6 fL Normal 80-94 [facility] Comment on above: Performed By: #### L 505.5000, L100.0100, L500.4050, [id number] #### [facility] [address] [place], [address] Monocytes/100 WBC (Bld) 7.2 % Normal 0-10 [facility] Comment on above: Performed By: #### L 505.5000, L100.0100, L500.4050, [id number] #### [facility] [address] [place], [address] Neutrophils/100 WBC (Bld) 60.2 % Normal 47-70 [facility] Comment on above: Performed By: #### L 505.5000, L100.0100, L500.4050, [id number] #### [facility] [address] [place], [address] Nucleated RBC (Bld) [#/Vol] 0 10*3/uL Normal 0-5 [facility] Comment on above: Performed By: #### L 505.5000, L100.0100, L500.4050, [id number] #### [facility] [address] [place], [address] Platelet mean volume (Bld) [Entitic vol] 12.2 fL High 6.2-12.0 [facility] Comment on above: Performed By: #### L 505.5000, L100.0100, L500.4050, [id number] #### [facility] [address] [place], [address] Platelets (Bld) [#/Vol] 244 10*3/uL Normal 150-450 [facility] Comment on above: Performed By: #### L 505.5000, L100.0100, L500.4050, [id number] #### [facility] [address] [place], [address] RBC (Bld) [#/Vol] 5.08 10*6/uL Normal 4.6-6.2 [facility] Comment on above: Performed By: #### L 505.5000, L100.0100, L500.4050, L501.9100 #### [facility] [address] [place], [address] RDW SD 44.7 fl High 35.1-43.9 [facility] Comment on above: Performed By: #### L 505.5000, L100.0100, L500.4050, L501.9100 #### [facility] [address] [place], [address] WBC (Bld) [#/Vol] 8.3 10*3/uL Normal 4.4-11.[address] [facility] Comment on above: Performed By: #### L 505.5000, L100.0100, L500.4050, L501.9100 #### [facility] [address] [place], [address] COVID 19 AG RAPID (RN [facility] T)on 02-10-2023 SARS-CoV-2 (COVID-19) RNA JANEEN+probe Ql (Unsp spec) *Negative results from patients with symptom onset beyond five days should be treated as presumptive and confirmed by a molecular assay if clinically necessary. Negative results should not be used as the sole basis for treatment or for patient management. SARS-CoV-2 Ag Resp Ql IA.rapid * This test has not been FDA cleared or approved; the test has been authorized by FDA under an Emergency Use Authorization (EAU) for use by laboratories certified under CLIA that meet the requirements to perform moderate, high, or waived complexity tests. SARS-CoV-2 Ag Resp Ql IA.rapid Normal Reference Range: Negative SARS-CoV-2 (COVID 19) Negative RAPID METHOD [employer]Now COVID19 Ag Card Normal [facility] Comment on above: Performed By: #### M 100.505 #### [facility] [address] [place], [address] COVID-19 virus antigen assay Ordered By: Brad Calero on 02-10-2023 SARS-CoV-2 (COVID-19) Ag IA.rapid Ql (Resp) [facility] Comprehensive Metabolic Prof ilon 02-10-2023 Albumin [Mass/Vol] 4.5 g/dL Normal 3.2-5.[address] [facility] Comment on above: Performed By: #### L 505.5000, L100.0100, L500.4050, L501.9100 #### [facility] [address] [place], [address] Albumin/Globulin [Mass ratio] 1.3 {ratio} Normal 0.9-2.4 [facility] Comment on above: Performed By: #### L 505.5000, L100.0100, L500.4050, L501.9100 #### [facility] [address] [place], [address] ALK P 81 U/L Normal 45-117 [facility] Comment on above: Performed By: #### L 505.5000, L100.0100, L500.4050, L501.9100 #### [facility] [address] [place], [address] ALT [Catalytic activity/Vol] 35 U/L Normal 16-61 [facility] Comment on above: Performed By: #### L 505.5000, L100.0100, L500.4050, L501.9100 #### [facility] [address] [place], [address] AST [Catalytic activity/Vol] 28 U/L Normal 15-37 [facility] Comment on above: Performed By: #### L 505.5000, L100.0100, L500.4050, L501.9100 #### [facility] [address] [place], [address] Bilirubin [Mass/Vol] 1.00 mg/dL Normal 0.20-1.00 [facility] Comment on above: Result Comment: For patients on eltrombopag therapy, use of Dimension [place] TBIL is not recommended. Performed By: #### L 505.5000, L100.0100, L500.4050, L501.9100 #### [facility] [address] [place], [address] BUN/CRE 9.9 RATIO Low 10-20 [facility] Comment on above: Performed By: #### L 505.5000, L100.0100, L500.4050, L501.9100 #### [facility] [address] [place], [address] CA,Total 9.5 mg/dL Normal 8.5-10.1 [facility] Comment on above: Performed By: #### L 505.5000, L100.0100, L500.4050, L501.9100 #### [facility] [address] [place], [address] Chloride [Moles/Vol] 105 mmol/L Normal 98-107 [facility] Comment on above: Performed By: #### L 505.5000, L100.0100, L500.4050, L501.9100 #### [facility] [address] [place], [address] CO2 [Moles/Vol] 26.0 mmol/L Normal 21.0-32.0 [facility] Comment on above: Performed By: #### L 505.5000, L100.0100, L500.4050, L501.9100 #### [facility] [address] [place], [address] Creatinine [Mass/Vol] 1.01 mg/dL Normal 0.70-1.30 [facility] Comment on above: Result Comment: The validity of the calculated GFR GFRAA in patients over 70 years has not been determined. Clinical correlation is essential. Performed By: #### L 505.5000, L100.0100, L500.4050, L501.9100 #### [facility] [address] [place], [address] ECRCL 114.18 ml/min Normal [facility] Comment on above: Performed By: #### L 505.5000, L100.0100, L500.4050, L501.9100 #### [facility] [address] [place], [address] EST GFR - AA 109 mL/min Normal >60 [facility] Comment on above: Result Comment: Afri can [place] GFR Calc Performed By: #### L 505.5000, L100.0100, L500.4050, L501.9100 #### [facility] [address] [place], [address] GAP 10 Normal 5-15 [facility] Comment on above: Performed By: #### L 505.5000, L100.0100, L500.4050, L501.9100 #### [facility] [address] [place], [address] GFR/1.73 sq M.predicted among non-blacks MDRD (S/P/Bld) [Vol rate/Area] 90 mL/min/{1.73_m2} Normal >60 [facility] Comment on above: Result Comment: Non- GFR Calc Performed By: #### L 505.5000, L100.0100, L500.4050, L501.9100 #### [facility] [address] [place], [address] Globulin (S) [Mass/Vol] 3.4 g/dL Normal 2.2-4.2 [facility] Comment on above: Performed By: #### L 505.5000, L100.0100, L500.4050, L501.9100 #### [facility] [address] [place], [address] Glucose [Mass/Vol] 101 mg/dL Normal 74-[address] [facility] Comment on above: Result Comment: Fast ing Glucose result from 100 to 125 mg/dL suggests IMPAIRED HOMEOSTASIS per A.D.A. criteria. Performed By: #### L 505.5000, L100.0100, L500.4050, L501.9100 #### [facility] [address] [place], [address] Potassium [Moles/Vol] 2.9 mmol/L Low 3.5-5.1 [facility] Comment on above: Performed By: #### L 505.5000, L100.0100, L500.4050, L501.9100 #### [facility] [address] [place], [address] Sodium [Moles/Vol] 141 mmol/L Normal 136-[address] [facility] Comment on above: Performed By: #### L 505.5000, L100.0100, L500.4050, L501.9100 #### [facility] [address] [place], [address] T PROT 7.9 g/dL Normal 6.4-8.2 [facility] Comment on above: Performed By: #### L 505.5000, L100.0100, L500.4050, L501.9100 #### [facility] [address] [place], [address] Urea nitrogen [Mass/Vol] 10 mg/dL Normal 7-18 [facility] Comment on above: Performed By: #### L 505.5000, L100.0100, L500.4050, L501.9100 #### [facility] [address] [place], [address] Determination of erythrocyte mean corpuscular volume (MCV)Ordered By: Brad Calero on 02-10-2023 MCV (RBC) [Entitic vol] 90.6 fL 80-94 [facility] Emergency Department Summary on 02-10-2023 Emergency Department Summary [facility] Medical Records Department [address] [place] [address] Emergency Department Summary 02/10/23 MR#: [id number] Acct: [id number] Name: ALEX MONREAL Rep #: [id number] : 1990 32 From: Brad Calero MD PCP: Care Physician,No Primary Status:DEP ER Location: ED HPI History of Present Illness Chief Complaint: Mental Health Informant: patient Narrative Narrative: Patient presents saying that he is concerned that he caught an STD from his girlfriend, with whom he is monogamous. It is difficult for him to tell nurse and I this because he is off-and-on tearful and seems emotional and it seems like there is something he is not telling us although when we ask it takes him several minutes but he eventually says he is okay. Patient states when asking him his symptoms that he had a small amount of semen colored discharge a couple days ago but ever since then he has not had anymore because has been drinking a ton of water to flush it out. He states this worked in the past and he probably has latent gonorrhea or chlamydia because of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 exam ches t 2 views Birgit Recinos APRN.BRIM CURLER Work Phone: Plan of Treatment Date Care Activity Detail Author Start: 03-30-2025 End: 03-30-2025 Patient encounter procedure 03/30/2025 1:00 PM EDT Office Visit [facility] [address], [place] [id number] Pk Do MD [address] [place] [address] [facility] Comment on above: [facility] Care Start: 03-01-2025 Influenza vaccination Influenza Vacc ine (#1) [facility] Start: 01-26-2025 End: 04-27-2025 25-hydroxyvitamin D3 [Mass/volume] in Serum or Plasma [facility] Comment on above: Expected: 01/26/2025 , Expires: 04/27/2025 Start: 01-26-2025 End: 04-27-2025 Basic metabolic 2000 panel - Serum or Plasma [facility] Comment on above: Expected: 01/26/2025 , Expires: 04/27/2025 Start: 01-26-2025 End: 04-27-2025 Testosterone [Mass/volume] in Serum or Plasma [facility] Comment on above: Expected: 01/26/2025 , Expires: 04/27/2025 Start: 01-26-2025 End: 04-27-2025 Thyrotropin [Units/volume] in Serum or Plasma [facility] Work Phone: Comment on above: Expected: 01/26/2025 , Expires: 04/27/2025 Start: 2024 Lipid panel Lipid Screening [facility] Start: 03-01-2024 Covid-19 Vaccine ( season) Covid-19 Vaccine ( season) [facility] Start: 03-01-2024 Covid-19 Vaccine ( season) Covid-19 Vaccine ( season) [facility] Start: 03-01-2024 Influenza vaccination C [facility] Start: 08-25-2023 [facility] Start: 07-01-2023 Behavioral Health Screening Behavioral Health Screening [facility] Start: 03-01-2023 Covid-19 Vaccine ( season) Covid-19 Vaccine ( season) [facility] Start: 07-01-2022 DEPRESSION ASSESSMENT DEPRESSION ASS ESSMENT [facility] Start: 03-01-2022 Influenza vaccination C [facility] Start: 03-01-2021 Influenza vaccination Flu vaccine (# 1) [employer] Phone: Start: 2016 HPV Vaccine (1 - 3-d ose SCDM series) HPV Vaccine (1 - 3-dose SCDM series) [facility] Start: 2008 DTaP/Tdap/Td vaccine (1 - Tdap) DTaP/Tdap/Td vaccine (1 - Tdap) [employer] Phone: Start: 2008 Hepatitis B Vaccine (1 of 3 - 19+ 3-dose series) Hepatitis B Vaccine (1 of 3 - 19+ 3-dose series) [facility] Start: 2008 Pneumococcal vaccination Pneumococcal Vaccine (1 of 2 - PCV) [facility] Start: 2008 Urine microalbumin profile [facility] Start: 10-13-2007 Anxiety Screening Anxiety Screening [facility] Start: 10-13-2007 Depression Screening Depression Scre ening [facility] Start: 10-13-2007 HEPATITIS C SCREENING HEPATITIS C [facility] Start: 10-13-2007 Hepatitis C screening Hepatitis C [facility] Start: 10-13-2007 HIV SCREENING HIV SCREENING [facility] Start: 10-13-2007 HIV screening HIV Screening [facility] Start: 2004 HIV screening HIV screen [facility] Work Phone: Start: 2001 Adult depression screening assessment DEPRESSION SCREENING [facility] Start: 2001 COVID-19 Vaccine (1) COVID-19 Vaccin e (1) [facility] Phone: Start: 10-13-1995 PNEUMOCOCCAL (1 - PCV) PNEUMOCOCCAL (1 - PCV) [facility] Start: 10-13-1995 Pneumococcal vaccination Pneumococcal Vaccine (1 of 2 - PCV) [facility] Start: 1994 COVID-19 VACCINE (#1) COVID-19 VACCI NE (#1) [facility] Start: 1990 Varicella vaccine (1 of 2 - 2-dose childhood series) Varicella vaccine (1 of 2 - 2-dose childhood series) [facility] Phone: Start: 04-13-1990 COVID-19 VACCINE (#1) COVID-19 VACCI NE (#1) [facility] Start: 1989 HEPATITIS B (1 of 3 - 3-dose series) HEPATITIS B (1 of 3 - 3-dose series) [facility] Start: 1989 Hepatitis C screening Hepatitis C [facility] Phone: Patient Education [facility] Work Phone: Patient referral [facility] Work Phone: End: 03-28-2021 XR HAND LEFT (MIN 3 VIEWS) XR HAND LEFT (MIN 3 VIEWS) Imaging STAT Once for 1 Occurrences starting 03/28/2021 until 03/28/2021 [employer] Phone: Comment on above: Once for 1 Occurrenc es starting 03/28/2021 until 03/28/2021 End: 03-28-2021 XR HAND RIGHT (MIN 3 VIEWS) XR HAND RIGHT (MIN 3 VIEWS) Imaging STAT Once for 1 Occurrences starting 03/28/2021 until 03/28/2021 [employer] Phone: Comment on above: Once for 1 Occurrenc es starting 03/28/2021 until 03/28/2021 End: 03-28-2021 XR SHOULDER LEFT (MIN 2 VIEWS) XR SHOULDER LEFT (MIN 2 VIEWS) Imaging STAT Once for 1 Occurrences starting 03/28/2021 until 03/28/2021 [employer] Phone: Comment on above: Once for 1 Occurrenc es starting 03/28/2021 until 03/28/2021 Payers Date Payer Category Payer Self-pay [id number] 2021 Medicaid [employer] [employer] [place] [id number] 2021-[facility] [phone] [place] [id number] Medicaid [id number] 2021 Medicaid [id number] 2021 Medicaid [id number] 1989 Unknown [id number] Unknown [id number] Social History Date Type Detail Facility Start: 03-28-2021 End: 08-25-2023 Tobacco smoking status NHIS Unknown if ever smoked [facility] Start: 03-28-2021 Alcohol intake Current drinke r of alcohol (finding) [employer] Phone: Start: 03-28-2021 Alcohol Comment almost 5th last nigh t [employer] Phone: Start: 1990 Sex Assigned At Not on file [facility] [employer] Phone: Start: 11-25-2021 End: 12-05-2021 Exposure to SARS-CoV-2 (event) Not sure [employer] Start: 06-10-2021 End: 02-15-2024 Tobacco smoking status MNIS Smokes tobacco daily [facility] History of tobacco use Cigarette Smoker C [facility] Start: 06-10-2021 End: 02-10-2025 Cigarettes smoked current (pack per day) - Reported 1 [facility] Start: 06-10-2021 End: 02-15-2024 Tobacco use and exposure Smokeless tobacco non-user [facility] Start: 06-10-2021 End: 07-04-2022 Tobacco Comment 1 pack per week [facility] Start: 1990 Sex Assigned At Male [facility] Start: 07-04-2022 End: 02-10-2025 Tobacco use panel [facility] Start: 06-10-2021 Sex Male [facility] Clinical Notes 12-05-2021 to 02-10-2025 Birgit Recinos APRN.CNP - 02/10/2025 12:08 PM EDTTelephone Encounter - Erlinda Khan LPN - 01/28/2025 9:28 AM EDTTelephone Encounter - Erlinda Kahn LPN - 01/28/2025 9:28 AM EDT Note Date & Type Note Facility 02-10-2025 Note HNO ID: [id number] Author: BIRGIT RECINOS APRN.CNP Service: ? Author Type: Nurse Practitioner Type: Progress Notes Filed: 02/10/2025 12:24 Note Text: [facility] Monreal is a 34 year old male. Patient presents with: Cough: Cough, chest congestion, fatigue, HACKETT and eye irritation x 2 weeks-but worse last few days HPI Nontoxic-appearing 34-year-old male presents urgent care chief complaint chest congestion fatigue headache sinus pressure. Duration of symptoms 2 weeks. Associated symptoms listed above. Presents today for evaluation. States does have some watery eyes in the morning that are slightly itchy. No visual changes eye pain/light floaters foreign body sensation. Most prominent symptom today is cough. Has became productive most recently. No blood. Denies any fever body aches or chills today. No chest pain shortness of breath or pleuritic pain or hemoptysis. Past medical history prescription medications allergies reviewed. Review of Systems Constitutional: Negative for chills, diaphoresis, fatigue and fever. HENT: Positive for sinus pressure, sinus pain and sore throat. Negative for congestion, ear discharge, ear pain, rhinorrhea and sneezing. Eyes: Negative for pain, discharge, redness, itching and visual disturbance. Respiratory: Positive for cough. Negative for chest tightness, shortness of breath and wheezing. Cardiovascular: Negative for chest pain. Gastrointestinal: Negative for abdominal pain, constipation, diarrhea, nausea and vomiting. Musculoskeletal: Negative for joint swelling, neck pain and neck stiffness. Skin: Negative for rash. Neurological: Positive for headaches. Negative for dizziness and weakness. Objective BP 128/82 Pulse 76 Temp 36.4 ?C (97.5 ?F) (Tympanic) Resp 16 Wt 76.2 kg (167 lb 15.9 oz) SpO2 97% Physical Exam Constitutional: Appearance: Normal appearance. HENT: Head: Normocephalic. Nose: No congestion or rhinorrhea. Right Sinus: Maxillary sinus tenderness present. Left Sinus: Maxillary sinus tenderness present. Mouth/Throat: Mouth: Mucous membranes are moist. Pharynx: Oropharynx is clear. No oropharyngeal exudate or posterior oropharyngeal erythema. Eyes: General: Lids are normal. Vision grossly intact. Right eye: No discharge or hordeolum. Left eye: No discharge or hordeolum. Conjunctiva/sclera: Conjunctivae normal. Right eye: Right conjunctiva is not injected. No chemosis, exudate or hemorrhage. Left eye: Left conjunctiva is not injected. No chemosis, exudate or hemorrhage. Cardiovascular: Rate and Rhythm: Normal rate. Pulmonary: Effort: Pulmonary effort is normal. Breath sounds: Normal breath sounds. No wheezing, rhonchi or rales. Abdominal: Palpations: Abdomen is soft. Tenderness: There is no abdominal tenderness. There is no guarding or rebound. Musculoskeletal: General: Normal range of motion. Cervical back: Normal range of motion and neck supple. No rigidity. Lymphadenopathy: Cervical: No cervical adenopathy. Skin: General: Skin is warm. Findings: No rash. Neurological: Mental Status: He is alert. {ASSESSMENT/PLAN: 1. Sinobronchitis - ICD9: 473.9, 490, ICD10: J32.9, J40 Diagnosis sinobronchitis. Placed on Augmentin Patient was educated on supportive therapies. Patient will follow up with primary care [...] of care. This note was generated using Anystream software. It may contain errors in wording, punctuation, or spelling. Birgit Recinos APRN.BRIM CURLER History and Record Review Clinical information obtained from an independent historian. History obtained from or confirmed by: parent. External record(s) reviewed: prior outpatient record. Disposition The patient was discharged. OTC Medications were advised: Procedures [place] 02-10-2025 History of Presen t illness Narrative [facility] Nayeli Monreal is a 34 year old male. Patient presents with: Cough: Cough, chest congestion, fatigue, HACKETT and eye irritation x 2 weeks-but worse last few days HPI Nontoxic-appearing 34-year-old male presents urgent care chief complaint chest congestion fatigue headache sinus pressure. Duration of symptoms 2 weeks. Associated symptoms listed above. Presents today for evaluation. States does have some watery eyes in the morning that are slightly itchy. No visual changes eye pain/light floaters foreign body sensation. Most prominent symptom today is cough. Has became productive most recently. No blood. Denies any fever body aches or chills today. No chest pain shortness of breath or pleuritic pain or hemoptysis. Past medical history prescription medications allergies reviewed. Review of Systems Constitutional: Negative for chills, diaphoresis, fatigue and fever. HENT: Positive for sinus pressure, sinus pain and sore throat. Negative for congestion, ear discharge, ear pain, rhinorrhea and sneezing. Eyes: Negative for pain, discharge, redness, itching and visual disturbance. Respiratory: Positive for cough. Negative for chest tightness, shortness of breath and wheezing. Cardiovascular: Negative for chest pain. Gastrointestinal: Negative for abdominal pain, constipation, diarrhea, nausea and vomiting. Musculoskeletal: Negative for joint swelling, neck pain and neck stiffness. Skin: Negative for rash. Neurological: Positive for headaches. Negative for dizziness and weakness. Objective BP 128/82 Pulse 76 Temp 36.4 C (97.5 F) (Tympanic) Resp 16 Wt 76.2 kg (167 lb 15.9 oz) SpO2 97% Physical Exam Constitutional: Appearance: Normal appearance. HENT: Head: Normocephalic. Nose: No congestion or rhinorrhea. Right Sinus: Maxillary sinus tenderness present. Left Sinus: Maxillary sinus tenderness present. Mouth/Throat: Mouth: Mucous membranes are moist. Pharynx: Oropharynx is clear. No oropharyngeal exudate or posterior oropharyngeal erythema. Eyes: General: Lids are normal. Vision grossly intact. Right eye: No discharge or hordeolum. Left eye: No discharge or hordeolum. Conjunctiva/sclera: Conjunctivae normal. Right eye: Right conjunctiva is not injected. No chemosis, exudate or hemorrhage. Left eye: Left conjunctiva is not injected. No chemosis, exudate or hemorrhage. Cardiovascular: Rate and Rhythm: Normal rate. Pulmonary: Effort: Pulmonary effort is normal. Breath sounds: Normal breath sounds. No wheezing, rhonchi or rales. Abdominal: Palpations: Abdomen is soft. Tenderness: There is no abdominal tenderness. There is no guarding or rebound. Musculoskeletal: General: Normal range of motion. Cervical back: Normal range of motion and neck supple. No rigidity. Lymphadenopathy: Cervical: No cervical adenopathy. Skin: General: Skin is warm. Findings: No rash. Neurological: Mental Status: He is alert. {ASSESSMENT/PLAN: 1. Sinobronchitis - ICD9: 473.9, 490, ICD10: J32.9, J40 Diagnosis sinobronchitis. Placed on Augmentin Patient was educated on supportive therapies. Patient will follow up with primary care [...] of care. This note was generated using Anystream software. It may contain errors in wording, punctuation, or spelling. Birgit Recinos APRN.CNP History and Record Review Clinical information obtained from an independent historian. History obtained from or confirmed by: parent. External record(s) reviewed: prior outpatient record. Disposition The patient was discharged. OTC Medications were advised: Procedures documented in this encounter [facility] 01-28-2025 Telephone encounter Note Patient returned call and went over results, notes from urgent care provider with understanding. [facility] 01-28-2025 Miscellaneous Notes Patient returned call and went over results, notes from urgent care provider with understanding. Left message for pt to call back. Deepthi Chopra MA Please inform patient that his potassium was slightly elevated and vitamin D25 was low. Recommend following up with PCP as scheduled to discuss test results further Birgit Recinos APRN.CNP Unable to reach patient via phone to discuss test results. Birgit Recinos APRN.CNP documented in this encounter [facility] 01-28-2025 Telephone encounter Note Left message for pt to call back. Deepthi Chopra MA [facility] 01-28-2025 Telephone encounter Note Please inform patient that his potassium was slightly elevated and vitamin D25 was low. Recommend following up with PCP as scheduled to discuss test results further Birgit Recinos APRN.JYOTI [facility] Work Phone: 01-27-2025 Telephone encounter Note Unable to reach patient via phone to discuss test results. Birgit Recinos APRN.CNP [facility] 01-26-2025 Note HNO ID: [id number] Author: YULIYA NICK APRN.CNP Service: ? Author Type: Nurse Practitioner Type: Progress Notes Filed: 01/26/2025 11:03 Note Text: [facility] [place] Monreal is a 34 year old male. Patient presents with: Eye Problem: irritation, swelling and drainage, sore throat x 1 week, cold sore HPI Bilateral Eye Discharge: - Onset: Approximately one week ago. - Initially began with inflammation and swelling of the upper eyelid. - Progressed to discharge in both eyes, more pronounced when wearing contact lenses. - Has been removing contact lenses to rest eyes; does not wear glasses. - Reports crusting in the morning and mild itching. - Last eye exam was less than a year ago. - Denies loss of vision, diplopia, or trauma to the eyes. -Denies foreign body feeling -Denies nausea/vomtiing Fatigue: - Noted increased fatigue during workouts and decreased recovery. - Describes fatigue as a lack of something, different from usual post-exercise fatigue. Sore Throat: - Reports a sore throat . - Denies significant cough, mild Denies ear or nose complaints Herpes Outbreak: - Noticed a herpes outbreak yesterday. -located above upper lip - Has had similar outbreaks in the past. - Believes the outbreak is indicative of a lowered immune system. Denies: - Sinus pressure. - Nausea, vomiting, diarrhea. - Ear pressure. No past medical history on file. No past surgical history on file. ALLERGIES Shellfish Derived and Seasonal Allergies MEDICATIONS acyclovir (ZOVIRAX) 400 mg tablet Take 1 tablet by mouth three times a day for 5 days. ciprofloxacin HCl (CILOXAN) 0.3 % ophthalmic solution Use 1-2 drops inside both lower eyelid(s) every 2 hours while awake for 2 days, then 1-2 drops every 4 hours for next 5 days. cholecalciferol (VITAMIN D-3) 5,000 unit tab Take 5,000 Units by mouth once daily. (Patient not taking: Reported on 01/26/2025) cyclobenzaprine (FLEXERIL) 10 mg tablet Take 1 tablet by mouth three times a day as needed for muscle spasm for up to 12 doses. (Patient not taking: Reported on 10/16/2024) fluticasone (FLONASE) 50 mcg/actuation nasal spray Use 2 Sprays in each nostril once daily. Rinse mouth after use. (Patient not taking: Reported on 10/16/2024) olopatadine (PATANOL) 0.1 % ophthalmic solution Use 1 Drop in both eyes twice daily. (Patient not taking: Reported on 02/15/2024) propranolol (INDERAL) 10 mg tablet Take 10 mg by mouth three times daily. (Patient not taking: Reported on 02/15/2024) lisdexamfetamine (VYVANSE) 20 mg chew Take by mouth. (Patient not taking: Reported on 02/15/2024) acamprosate calcium (ACAMPROSATE ORAL) Take by mouth. (Patient not taking: Reported on 02/15/2024) albuterol HFA (PROVENTIL HFA, VENTOLIN HFA) 90 mcg/actuation inhaler Inhale 2 Puffs as instructed every 4 hours as needed for wheezing/shortness of breath. (Patient not taking: Reported on 02/15/2024) bupropion HCl (WELLBUTRIN ORAL) Take by mouth. (Patient not taking: Reported on 02/15/2024) No family history on file. Social History Tobacco Use Smoking status: Every Day Current packs/day: 1.00 Types: Cigarettes Smokeless tobacco: Never Tobacco comments: 1 pack per week Review of Systems Constitutional: (+) fatigue Eyes: upper eyelid swelling, (+) ocular discharge, (+) eye crusting, (+) eye pruritus, (-) vision loss, (-) diplopia, (-) ocular trauma Ears/Nose/Mouth/Throat: (+) sore throat, (-) sinus pressure, (-) ear pressure Respiratory: (+) cough Gastrointestinal: (-) nausea, (-) vomiting, (-) diarrhea Skin: (+) lip sore Objective BP 110/68 Pulse 80 Temp 36.1 ?C (96.9 ?F) Resp 16 Wt 77.1 kg (169 lb 15.6 oz) SpO2 98% Physical Exam General: No acute distress. HEENT: Bilateral conjunctival very mild injection and , PERRLA. EOM intact +red reflex bilatera. + pharyngeal erythema. Adenopathy: +cervical Skin: Vesicular lesions noted above upper lip Lungs: CTA AP B/L Cardiac: Apical RRR Neuro: A AND O x 3 { 1. URI, acute (J06.9) 2. Conjunctivitis of both eyes, unspecified conjunctivitis type (H10.9) 3. Fatigue, unspecified type (R53.83) - Bilateral conjunctival discharge, crusting, and mild pruritus; strep test negative. - Start Polytrim ophthalmic drops, 1 drop in both eyes every 4 hours for 7 days. - Advised to avoid contact lens use during treatment and for 24 hours after completing the 5-day course; discussed rationale to prevent counterproductive treatment. - Ordered CBC, TSH, total testosterone, vitamin D, and BMP. 4. Does not have primary care provider (Z75.8) - Advised to establish care with a primary care provider for ongoing health maintenance and follow-up of lab results. -requesting lab work - Ordered CBC, TSH, total testosterone, vitamin D, and BMP. Patient establishes appt, will see Dr. Do Mar 09 He was informed if his testerone levels were to be abnormal, that (more content not included)... [place] 01-26-2025 History of Presen t illness Narrative [facility] Subjective Alex Monreal is a 34 year old male. Patient presents with: Eye Problem: irritation, swelling and drainage, sore throat x 1 week, cold sore HPI Bilateral Eye Discharge: - Onset: Approximately one week ago. - Initially began with inflammation and swelling of the upper eyelid. - Progressed to discharge in both eyes, more pronounced when wearing contact lenses. - Has been removing contact lenses to rest eyes; does not wear glasses. - Reports crusting in the morning and mild itching. - Last eye exam was less than a year ago. - Denies loss of vision, diplopia, or trauma to the eyes. -Denies foreign body feeling -Denies nausea/vomtiing Fatigue: - Noted increased fatigue during workouts and decreased recovery. - Describes fatigue as a lack of something, different from usual post-exercise fatigue. Sore Throat: - Reports a sore throat . - Denies significant cough, mild Denies ear or nose complaints Herpes Outbreak: - Noticed a herpes outbreak yesterday. -located above upper lip - Has had similar outbreaks in the past. - Believes the outbreak is indicative of a lowered immune system. Denies: - Sinus pressure. - Nausea, vomiting, diarrhea. - Ear pressure. No past medical history on file. No past surgical history on file. ALLERGIES Shellfish Derived and Seasonal Allergies MEDICATIONS acyclovir (ZOVIRAX) 400 mg tablet Take 1 tablet by mouth three times a day for 5 days. ciprofloxacin HCl (CILOXAN) 0.3 % ophthalmic solution Use 1-2 drops inside both lower eyelid(s) every 2 hours while awake for 2 days, then 1-2 drops every 4 hours for next 5 days. cholecalciferol (VITAMIN D-3) 5,000 unit tab Take 5,000 Units by mouth once daily. (Patient not taking: Reported on 01/26/2025) cyclobenzaprine (FLEXERIL) 10 mg tablet Take 1 tablet by mouth three times a day as needed for muscle spasm for up to 12 doses. (Patient not taking: Reported on 10/16/2024) fluticasone (FLONASE) 50 mcg/actuation nasal spray Use 2 Sprays in each nostril once daily. Rinse mouth after use. (Patient not taking: Reported on 10/16/2024) olopatadine (PATANOL) 0.1 % ophthalmic solution Use 1 Drop in both eyes twice daily. (Patient not taking: Reported on 02/15/2024) propranolol (INDERAL) 10 mg tablet Take 10 mg by mouth three times daily. (Patient not taking: Reported on 02/15/2024) lisdexamfetamine (VYVANSE) 20 mg chew Take by mouth. (Patient not taking: Reported on 02/15/2024) acamprosate calcium (ACAMPROSATE ORAL) Take by mouth. (Patient not taking: Reported on 02/15/2024) albuterol HFA (PROVENTIL HFA, VENTOLIN HFA) 90 mcg/actuation inhaler Inhale 2 Puffs as instructed every 4 hours as needed for wheezing/shortness of breath. (Patient not taking: Reported on 02/15/2024) bupropion HCl (WELLBUTRIN ORAL) Take by mouth. (Patient not taking: Reported on 02/15/2024) No family history on file. Social History Tobacco Use Smoking status: Every Day Current packs/day: 1.00 Types: Cigarettes Smokeless tobacco: Never Tobacco comments: 1 pack per week Review of Systems Constitutional: (+) fatigue Eyes: upper eyelid swelling, (+) ocular discharge, (+) eye crusting, (+) eye pruritus, (-) vision loss, (-) diplopia, (-) ocular trauma Ears/Nose/Mouth/Throat: (+) sore throat, (-) sinus pressure, (-) ear pressure Respiratory: (+) cough Gastrointestinal: (-) nausea, (-) vomiting, (-) diarrhea Skin: (+) lip sore Objective BP 110/68 Pulse 80 Temp 36.1 C (96.9 F) Resp 16 Wt 77.1 kg (169 lb 15.6 oz) SpO2 98% Physical Exam General: No acute distress. HEENT: Bilateral conjunctival very mild injection and , PERRLA. EOM intact +red reflex bilatera. + pharyngeal erythema. Adenopathy: +cervical Skin: Vesicular lesions noted above upper lip Lungs: CTA AP B/L Cardiac: Apical RRR Neuro: A & O x 3 { 1. URI, acute (J06.9) 2. Conjunctivitis of both eyes, unspecified conjunctivitis type (H10.9) 3. Fatigue, unspecified type (R53.83) - Bilateral conjunctival discharge, crusting, and mild pruritus; strep test negative. - Start Polytrim ophthalmic drops, 1 drop in both eyes every 4 hours for 7 days. - Advised to avoid contact lens use during treatment and for 24 hours after completing the 5-day course; discussed rationale to prevent counterproductive treatment. - Ordered CBC, TSH, total testosterone, vitamin D, and BMP. 4. Does not have primary care provider (Z75.8) - Advised to establish care with a primary care provider for ongoing health maintenance and follow-up of lab results. -requesting lab work - Ordered CBC, TSH, total testosterone, vitamin D, and BMP. Patient establishes appt, will see Dr. Do Sept He was informed if his testerone levels were to be abnormal, that would be managed and treated by PCP 5. Herpesviral infection (B00.9) - Start acyclovir, 1 tablet TID for 5 days. and Recording using [employer] software for draft documentation of the visit was discussed with the patient/authorized guest experience representative; all questions welcomed and answered. Patient/authorized guest experience representative agreed to proceed MDM Procedures documented in this encounter [facility] 10-16-2024 Note HNO ID: [id number] Author: WALTER LEMONS PA-C Service: ? Author Type: Physician Enrollment Management Coordinator Type: Progress Notes Filed: 10/16/2024 12:42 Note Text: [facility] Subjective Alex Monreal is a 34 year old male. Patient presents with: Eye Problem: Left eye pain, swelling discharge, red x 1 day, states removed contacted and had issues after same, Patient is a 34-year-old male who complains of acute onset of redness and swelling to his left upper and lower eyelids that occurred last evening. Patient does wear contact lenses and states that he noted his symptoms developing after he removed his left contact lens last evening. Patient reports eye irritation but denies acute changes to his vision. Patient also noted mild discharge to his left eye this morning. Patient has noted no pustule or other skin lesion to the margins of his left upper and lower eyelids. Patient denies injury or foreign body to his left eye. Patient states that his right eye is asymptomatic. Eye Problem Review of Systems Eyes: Positive for redness and itching. Redness and Swelling to Left Eyelids All other systems reviewed and are negative. Objective BP 117/76 Pulse 84 Temp 36.4 ?C (97.6 ?F) Resp 18 Wt 78 kg (171 lb 15.3 oz) SpO2 100% Physical Exam Vitals and nursing note reviewed. Constitutional: Appearance: Normal appearance. He is normal weight. HENT: Head: Normocephalic and atraumatic. Right Ear: External ear normal. Left Ear: External ear normal. Nose: Nose normal. Mouth/Throat: Mouth: Mucous membranes are moist. Pharynx: Oropharynx is clear. Eyes: General: Right eye: No discharge. Left eye: No discharge. Extraocular Movements: Extraocular movements intact. Conjunctiva/sclera: Conjunctivae normal. Pupils: Pupils are equal, round, and reactive to light. Comments: Erythema and edema is noted to the left superior and inferior eyelids. Eyelid margins are clear with no evidence of pustule, vesicle, hordeolum or other lesion. There is no matting or discharge to the left eye. Left conjunctiva is mildly injected. Left periorbital skin is clear without erythema or edema. Exam of the right conjunctiva, eyelids and periorbital skin is unremarkable. Pupils are equal, round and reactive to light and accommodation and the patient demonstrates full extraocular range of motion bilaterally. Cardiovascular: Rate and Rhythm: Normal rate. Pulses: Normal pulses. Pulmonary: Effort: Pulmonary effort is normal. Breath sounds: Normal breath sounds. Musculoskeletal: Cervical back: Normal range of motion and neck supple. Skin: General: Skin is warm and dry. Capillary Refill: Capillary refill takes less than 2 seconds. Neurological: General: No focal deficit present. Mental Status: He is alert and oriented to person, place, and time. Psychiatric: Mood and Affect: Mood normal. Behavior: Behavior normal. Thought Content: Thought content normal. Judgment: Judgment normal. Assessment Physical exam findings as noted above. Patient was provided with a prescription for erythromycin 0.5% ophthalmic ointment and instructions for application were discussed. Patient was clearly advised to schedule an appointment with his director/lion tamer if he notes no improvement in his symptoms. Additional supportive care was discussed and patient verbalizes clear understanding of same. CLINICAL IMPRESSION: Acute Blepharitis Left Superior/Inferior Eyelids ASSESSMENT/PLAN: 1. Acute blepharitis - ICD9: 373.00, ICD10: H01.009 - ERYTHROMYCIN 5 MG/GRAM (0.5 %) EYE OINTMENT Walter Lemons PA-C Disposition The patient was discharged. [place] 10-16-2024 History of Presen t illness Narrative [facility] Subjective Alex Monreal is a 34 year old male. Patient presents with: Eye Problem: Left eye pain, swelling discharge, red x 1 day, states removed contacted and had issues after same, Patient is a 34-year-old male who complains of acute onset of redness and swelling to his left upper and lower eyelids that occurred last evening. Patient does wear contact lenses and states that he noted his symptoms developing after he removed his left contact lens last evening. Patient reports eye irritation but denies acute changes to his vision. Patient also noted mild discharge to his left eye this morning. Patient has noted no pustule or other skin lesion to the margins of his left upper and lower eyelids. Patient denies injury or foreign body to his left eye. Patient states that his right eye is asymptomatic. Eye Problem Review of Systems Eyes: Positive for redness and itching. Redness and Swelling to Left Eyelids All other systems reviewed and are negative. Objective BP 117/76 Pulse 84 Temp 36.4 C (97.6 F) Resp 18 Wt 78 kg (171 lb 15.3 oz) SpO2 100% Physical Exam Vitals and nursing note reviewed. Constitutional: Appearance: Normal appearance. He is normal weight. HENT: Head: Normocephalic and atraumatic. Right Ear: External ear normal. Left Ear: External ear normal. Nose: Nose normal. Mouth/Throat: Mouth: Mucous membranes are moist. Pharynx: Oropharynx is clear. Eyes: General: Right eye: No discharge. Left eye: No discharge. Extraocular Movements: Extraocular movements intact. Conjunctiva/sclera: Conjunctivae normal. Pupils: Pupils are equal, round, and reactive to light. Comments: Erythema and edema is noted to the left superior and inferior eyelids. Eyelid margins are clear with no evidence of pustule, vesicle, hordeolum or other lesion. There is no matting or discharge to the left eye. Left conjunctiva is mildly injected. Left periorbital skin is clear without erythema or edema. Exam of the right conjunctiva, eyelids and periorbital skin is unremarkable. Pupils are equal, round and reactive to light and accommodation and the patient demonstrates full extraocular range of motion bilaterally. Cardiovascular: Rate and Rhythm: Normal rate. Pulses: Normal pulses. Pulmonary: Effort: Pulmonary effort is normal. Breath sounds: Normal breath sounds. Musculoskeletal: Cervical back: Normal range of motion and neck supple. Skin: General: Skin is warm and dry. Capillary Refill: Capillary refill takes less than 2 seconds. Neurological: General: No focal deficit present. Mental Status: He is alert and oriented to person, place, and time. Psychiatric: Mood and Affect: Mood normal. Behavior: Behavior normal. Thought Content: Thought content normal. Judgment: Judgment normal. Assessment Physical exam findings as noted above. Patient was provided with a prescription for erythromycin 0.5% ophthalmic ointment and instructions for application were discussed. Patient was clearly advised to schedule an appointment with his director/lion tamer if he notes no improvement in his symptoms. Additional supportive care was discussed and patient verbalizes clear understanding of same. CLINICAL IMPRESSION: Acute Blepharitis Left Superior/Inferior Eyelids ASSESSMENT/PLAN: 1. Acute blepharitis - ICD9: 373.00, ICD10: H01.009 - ERYTHROMYCIN 5 MG/GRAM (0.5 %) EYE OINTMENT Walter Lemons PA-C Disposition The patient was discharged. documented in this encounter [facility] 02-15-2024 Note HNO ID: [id number] Author: MARGARITA BANDA APRN.BRIM CURLER Service: ? Author Type: Nurse Practitioner Type: Progress Notes Filed: 02/15/2024 13:16 Note Text: This note was created using [employer]. Subjective Alex Monreal is a 33 year old male. HPI Pt has had low back pain since weight lifting about 10 days ago. He now feels as though his back is weak with certain ranges of motion. He notes that he will occasionally get sharp stabbing pain but usually there is just a dull ache in his back. He otherwise denies any nausea vomiting fever loss of control of bowel or bladder. Patient also notes symptoms consistent with outbreak of cold sore on his lower lip. Requesting valacyclovir. Review of Systems Genitourinary: Negative for decreased urine volume, dysuria and frequency. Musculoskeletal: Positive for back pain. Objective BP 118/84 Pulse 67 Temp (!) 35.6 ?C (96 ?F) Resp 18 Wt 83 kg (182 lb 15.7 oz) SpO2 99% Physical Exam Vitals and nursing note reviewed. Constitutional: General: He is not in acute distress. Appearance: Normal appearance. He is not ill-appearing. HENT: Head: Normocephalic. Pulmonary: Effort: Pulmonary effort is normal. Musculoskeletal: General: Normal range of motion. Cervical back: Normal range of motion. Comments: No lumbar vertebral tenderness. No specific point tenderness over the bilateral lower back area. Patient ambulates easily in the room and appears to have full range of motion with his back. Skin: General: Skin is warm and dry. Neurological: General: No focal deficit present. Mental Status: He is alert. Psychiatric: Mood and Affect: Mood normal. Behavior: Behavior normal. Assessment and Plan ASSESSMENT/PLAN: 1. Strain of lumbar region, initial encounter - ICD9: 847.2, ICD10: S39.012A (primary diagnosis) Lumbosacral sprain - Prednisone burst- see orders -Patient was also given prescriptions for muscle relaxer and steroids. I instructed him to avoid NSAID use during the steroid dose. -Patient was instructed to slowly resume activities as tolerated doing gentle stretching exercises. - CYCLOBENZAPRINE 10 MG TABLET - PREDNISONE 50 MG TABLET 2. Recurrent cold sores - ICD9: 054.9, ICD10: B00.1 Patient given valacyclovir as noted below for preventative outbreak of cold sore. - VALACYCLOVIR 1 GRAM TABLET Margarita Banda APRN.BRIM CURLER [place] 02-15-2024 History of Presen t illness Narrative This note was created using [employer]. Subjective Alex Monreal is a 33 year old male. HPI Pt has had low back pain since weight lifting about 10 days ago. He now feels as though his back is weak with certain ranges of motion. He notes that he will occasionally get sharp stabbing pain but usually there is just a dull ache in his back. He otherwise denies any nausea vomiting fever loss of control of bowel or bladder. Patient also notes symptoms consistent with outbreak of cold sore on his lower lip. Requesting valacyclovir. Review of Systems Genitourinary: Negative for decreased urine volume, dysuria and frequency. Musculoskeletal: Positive for back pain. Objective BP 118/84 Pulse 67 Temp (!) 35.6 C (96 F) Resp 18 Wt 83 kg (182 lb 15.7 oz) SpO2 99% Physical Exam Vitals and nursing note reviewed. Constitutional: General: He is not in acute distress. Appearance: Normal appearance. He is not ill-appearing. HENT: Head: Normocephalic. Pulmonary: Effort: Pulmonary effort is normal. Musculoskeletal: General: Normal range of motion. Cervical back: Normal range of motion. Comments: No lumbar vertebral tenderness. No specific point tenderness over the bilateral lower back area. Patient ambulates easily in the room and appears to have full range of motion with his back. Skin: General: Skin is warm and dry. Neurological: General: No focal deficit present. Mental Status: He is alert. Psychiatric: Mood and Affect: Mood normal. Behavior: Behavior normal. Assessment and Plan ASSESSMENT/PLAN: 1. Strain of lumbar region, initial encounter - ICD9: 847.2, ICD10: S39.012A (primary diagnosis) Lumbosacral sprain - Prednisone burst- see orders -Patient was also given prescriptions for muscle relaxer and steroids. I instructed him to avoid NSAID use during the steroid dose. -Patient was instructed to slowly resume activities as tolerated doing gentle stretching exercises. - CYCLOBENZAPRINE 10 MG TABLET - PREDNISONE 50 MG TABLET 2. Recurrent cold sores - ICD9: 054.9, ICD10: B00.1 Patient given valacyclovir as noted below for preventative outbreak of cold sore. - VALACYCLOVIR 1 GRAM TABLET Margarita Banda APRN.JYOTI documented in this encounter [facility] 06-01-2023 Miscellaneous Notes Called pt and LVM to establish care. Closing encounter Called pt to schedule.. LVM Hi! Totally fine-- go ahead and schedule th patient with me. Thanks for checking! Suma Rao PA-C Patient is requesting to establish care with Suma Rao. Monae Green (patient girlfriend) spoke with Suma he said and Suma pate'd the appointment. Please advise if we can truly schedule to establish care with Maira. Just needed the Okay from [place] on file. Patient would like a call to schedule if so. Thank you. documented in this encounter [facility] 07-04-2022 History of Presen t illness Narrative Radiology Service Progress Note PATIENT NAME: Alex [...] RT John(R) July 04, 2022 9:57 AM documented in this encounter [facility] 07-04-2022 Instructions Birgit Recinos APRN.BRIM CURLER - 07/04/2022 9:57 AM EST How to [...] concerning to you. documented in this encounter [facility] 07-04-2022 History of Presen t illness Narrative Subjective HPI Nontoxic-appearing male presents [...] started abruptly. Patient states they have used [id number] medication with some success. Patient states they [...] of care. This note was generated using Anystream software. It may contain errors in wording, punctuation, or spelling. Birgit Recinos APRN.JYOTI documented in this encounter [facility] 12-05-2021 History of Presen t illness Narrative Images from the original note [...] EYE DROPS Agrees to plan Vaibhav Felton APRN.JYOTI documented in this encounter [facility] 12-05-2021 Instructions Vaibhav Felton APRN.JYOTI - 12/05/2021 [...] or other medication. When To See an Finance Lecturer You should consult with an cna per diem-silk spooler if you persistently have red, itchy, watery eyes. Many times, with the help of a doctor, ocular allergies and conjunctivitis can be controlled. Copyright 2000 [employer] and [employer] documented in this encounter [facility] Evaluation note Diagnosis Uncomplicated alcohol dependence (HCC)- Primary Other and unspecified alcohol dependence, unspecified drinking behavior documented in this encounter [facility] [employer] Work Phone: evaluation note* Diagnosis Allergic conjunctivitis and rhinitis, bilateral- Primary [facility] Diagnosis Acute cough- Primary Viral illness Unspecified viral infection, in conditions classified elsewhere and of unspecified site [facility] noteNo assessment information availableWFirelands [facility] Work Phone: Evaluation note* Diagnosis Strain of lumbar region, initial encounter- Primary Recurrent cold sores Herpes simplex without mention of complication [facility] Diagnosis Acute cough [facility] Diagnosis Acute blepharitis- Primary [facility] Diagnosis URI, acute- Primary Acute upper respiratory infections of unspecified site Conjunctivitis of both eyes, unspecified conjunctivitis type Fatigue, unspecified type Does not have primary care provider Herpesviral infection Herpes simplex without mention of complication [facility] Diagnosis Sinobronchitis- Primary Unspecified sinusitis (chronic) [facility]* Attachments The following attachments cannot be sent through Care Everywhere. * Alcohol - Drug - or Poison Ingestion (German) [facility] [employer] Work Phone: Hospital Discharge instructions Additional Instructions If your gonorrhea and/or chlamydia testing returns positive you will get a phone call from the ER as long as we have your correct contact information, regarding whether you need to come back or not for treatment.[facility] Work Phone: Hospital Discharge instructions Additional Instructions Rest, ice, and take Tylenol or Motrin as neededWFirelands Regional Medical Center Work Phone: Health Concerns Infection Onset Date Last Indicated Resolved Time COVID-19 Rule-Out 07/04/2022 07/04/2022 07/04/2022 10:47 PM EST Chief Complaint and Reason for Visit Chief Complaint std testing Chief Complaint right hip Advance Directives No Advanced Directives Records Found Advance Directive Response Recorded Date/ Time Living Will No February 10 2:04pm Power of Unix Architect No February 10, 2 023 2:04pm Advance Directive Response Recorded Date/ Time Living Will No August 25 024 12:47pm Power of Unix Architect No August 25, 2023 12:47pm Summary Purpose Family History No Family History Records FoundNo Family History Records FoundNo Family History Records Found Additional Source Comments Reason for Visit (unrecogniz ed section and content) Reason Comments Alcohol Problem wants to get into tr eatment. No SI or HI Reason Comments Eye Problem bilateral red and ir ritated eyes x 1 day Reason Comments Cough Chest congestion, na usea, ST, bodyaches x4 days Reason Comments Appointment Reason Comments Fatigue Lower mid back pain x 1.5 weeksCold sore on bottom lip x 1 day Reason Comments Eye Problem Left eye pain, swell ing discharge, red x 1 day, states removed contacted and had issues after same, Reason Comments Eye Problem irritation, swelling and drainage, sore throat x 1 week, cold sore Specialty Diagnoses / Procedures Referred By Contac t Referred To Contact Internal Medicine / URGENT CARE CLINIC Diagnoses Sore throat, eye irritation/discharge, fatigue x 1 week Procedures URGENT CARE [facility] [address] [place] [address] Phone: tel: Referral ID Status Reason Start Date Expiration Date Visits Requested Visits Authorized [id number] New Request Financial Clearance Required - Self Pay 01/26/2025 04/26/2025 1 1 Reason Onset Date Comments Results 01/27/2025 Reason Comments Cough Cough, chest congest ion, fatigue, HACKETT and eye irritation x 2 weeks-but worse last few days Source Comments (unrecognize d section and content) In the event this informatio n is protected by the Federal Confidentiality of Alcohol and Drug Abuse Patient Records regulations: The Federal rules restrict any use of the information to criminally investigate or prosecute any alcohol or drug abuse patient.[facility] the event this information is protected by the Federal Confidentiality of Alcohol and Drug Abuse Patient Records regulations: The Federal rules restrict any use of the information to criminally investigate or prosecute any alcohol or drug abuse patient.[facility] the event this information is protected by the Federal Confidentiality of Alcohol and Drug Abuse Patient Records regulations: The Federal rules restrict any use of the information to criminally investigate or prosecute any alcohol or drug abuse patient.[facility] the event this information is protected by the Federal Confidentiality of Alcohol and Drug Abuse Patient Records regulations: The Federal rules restrict any use of the information to criminally investigate or prosecute any alcohol or drug abuse patient.[facility] the event this information is protected by the Federal Confidentiality of Alcohol and Drug Abuse Patient Records regulations: The Federal rules restrict any use of the information to criminally investigate or prosecute any alcohol or drug abuse patient.[facility] the event this information is protected by the Federal Confidentiality of Alcohol and Drug Abuse Patient Records regulations: The Federal rules restrict any use of the information to criminally investigate or prosecute any alcohol or drug abuse patient.[facility] HospitalIn the event this information is protected by the Federal Confidentiality of Alcohol and Drug Abuse Patient Records regulations: The Federal rules restrict any use of the information to criminally investigate or prosecute any alcohol or drug abuse patient.[facility] HospitalIn the event this information is protected by the Federal Confidentiality of Alcohol and Drug Abuse Patient Records regulations: The Federal rules restrict any use of the information to criminally investigate or prosecute any alcohol or drug abuse patient.[facility] the event this information is protected by the Federal Confidentiality of Alcohol and Drug Abuse Patient Records regulations: The Federal rules restrict any use of the information to criminally investigate or prosecute any alcohol or drug abuse patient.[facility] Care Teams (unrecognized sec tion and content) Team Status: Active Member Role Status Dates No Primary Care Physician Primary Care Provider Active Team Status: Inactive Member Role Status Dates No Primary Care Physician Primary Care Provider Active Dr. Brad Calero MD Emergency Provider Active Team Status: Inactive Member Role Status Dates No Primary Care Physician Primary Care Provider Active Mervin Aldrich MD Emergency Provider Active Goals (unrecognized section and content) Goals may be documented in a n alternate sectionGoals may be documented in an alternate section (unrecognized sect ion and content) No Status Records FoundNo Status Records FoundNo Status Records Found INFORMATION SOURCE (unrecogn ized section and content) DATE CREATED AUTHOR 02/16/2023 [facility] DATE CREATED AUTHOR AUTHOR'S ORGANIZ ATION 02/19/2023 [facility] DATE CREATED AUTHOR AUTHOR'S ORGANIZ ATION 02/12/2025 [place] FOR RECORDS PERTAINING TO PATIENTS WHO ARE [...] BE BASED ON THE PRIMARY CLINICAL RECORDS. [facility] [employer] [facility]. provides no warranty or guarantee of the accuracy or completeness of information in this document.
--- NOTE | 2025-06-04 20:14 | EX.ED.GENINJ ---
HPI History of Present Illness Chief Complaint: Laceration Informant: patient Onset/Context/Timing Onset: Today Narrative Narrative: 34-year-old male presenting to the emergency room with chief complaint of finger laceration. Patient was at work cutting potatoes when he lacerated the tip of the left long finger. Unsure of last tetanus but he does not wish this updated. He denies any other injuries. Tetanus Immunization: Unknown [facility] Medical History Bipolar disorder PTSD (post-traumatic stress disorder) Anxiety Depression Home Medications ?Medication ?Instructions ?Recorded ?Last Taken ?Type albuterol sulfate 90 mcg/actuation 2 puff inhalation Q4H PRN PRN 01/16/21 Unknown Rx aerosol inhaler (Ventolin HFA) Wheezing ##1 acamprosate 333 mg tablet,delayed 333 mg PO BID 02/10/23 Unknown History release bupropion HCl 150 mg 24 hr tablet, 150 mg PO DAILY 02/10/23 Unknown History extended release cholecalciferol (vitamin D3) 125 125 mcg PO DAILY 02/10/23 Unknown History mcg (5,000 unit) tablet lisdexamfetamine 50 mg capsule 50 mg PO DAILY 02/10/23 Unknown History (Vyvanse) propranolol 40 mg tablet 40 mg PO Q12H 02/10/23 Unknown History Allergy/AdvReac Type Severity Reaction Status Date / Time shellfish derived Allergy Anaphylaxis Verified 06/04/25 18:09 Social History household members: none Smoking Status: Current some day smoker tobacco type: cigars alcohol intake: current alcohol intake frequency: a few times a month substance use type: crack/cocaine ROS ROS ED Constitutional Constitutional ED: Denies chills, fever(s) or weight loss Eyes Eyes: Denies change in vision or diplopia ENT ENT ED: Denies ear pain, rhinorrhea or sore throat Cardiovascular Cardiovascular: Denies chest pain, orthopnea, palpitations or racing heartbeat Respiratory/Chest Respiratory/Chest: Denies cough, dyspnea or orthopnea Gastrointestinal Gastrointestinal: Denies abdominal pain, diarrhea, nausea or vomiting Genitourinary Genitourinary ED: Denies dysuria, hematuria or urinary frequency Musculoskeletal Musculoskeletal: Denies arthralgias or myalgias Integumentary Reports other Details: Left middle finger injury ; Denies abscess or rash Neurologic Neurologic: Denies headache(s) or weakness Psychiatric Psychiatric: Denies anxiety, depression, suicidal ideation or suicidal thoughts Endocrine Endocrinology: Denies polydipsia, polyphagia or polyuria Allergic/Immunologic Allergic/Immunologic ED: Denies mouth swelling, tongue swelling or urticaria EXAM Physical Exam Const Vital Signs: 06/04/25 18:06 06/04/25 19:06 Temperature 97.4 F L 97.4 F L Temperature Source Temporal Pulse Rate 76 70 Respiratory Rate 18 18 Blood Pressure 132/76 H 132/76 H Blood Pressure Mean 94 94 Pulse Ox 100 100 Oxygen Delivery Method Room Air Positive well nourished and well developed General Appearance ED: well developed and NAD HEENT Reports normocephalic, head/scalp atraumatic and moist mucous membranes Eyes PERRL and EOMs intact bilaterally Neck no lymphadenopathy, supple and no JVD Resp normal respiratory effort and clear to auscultation bilaterally Cardio regular rate, regular rhythm and no murmurs GI normal to inspection, nondistended, normoactive bowel sounds and non-tender Palpation: soft Back/Spine no CVA tenderness and normal ROM Extremity Extremity Narrative: Left long finger demonstrates near complete amputation of the lateral volar fat pad. I do not visualize exposed bone. There is a small 1 x 5 mm section of the nail that is on the partially avulsed skin. The partially avulsed skin is white compared to the rest of the finger. There is mild venous bleeding. General Extremety ED: Negative for edema General Extremity: Negative for edema Neuro oriented x3 and CN's II-XII intact bilaterally Sensorium / Orientation: alert Motor Exam: strength 5/5 throughout Psych mental status grossly normal Mood & Affect: Negative for depressed or tearful Skin no rashes or lesions noted and no wounds MDM MDM MDM Narrative Medical decision making narrative: Differential diagnosis includes nailbed injury nail avulsion fingertip avulsion open fracture neurovascular injury Patient does not wish his tetanus updated. He does not wish a digital block. He wishes only a small amount of anesthesia to the tip of his finger. He understands that the finger tip skin may not survive but providing ample coverage of bone which I do not visualize would be better than full removal. Wound was locally anesthetized with 1% lidocaine washed with Shur-Clens and explored. The 3 cm laceration was closed using a total of 6 simple erupted 4-0 Ethilon sutures. The small 1 x 7 mm piece of nail was removed. Wound was dressed. Local wound care discussed with patient. Follow-up in 10 days for suture removal and return if worsening or concerns History & Record Review Discussion w/independent historian: Patient Discharge Plan Triage Chief Complaint: Laceration ED Provider: Mahin Schulte Dx/Rx/DC Orders Clinical Impression: Amputation of tip of finger, Finger laceration Instructions: ED Detached Fingernail or Toenail, ED Skin Tear (Skin Avulsion) Prescriptions: No Action albuterol sulfate [Ventolin HFA] 1 INHALER inhaler 2 puff inhalation Q4H PRN PRN (Reason: Wheezing) Qty: 1 0RF acamprosate 333 mg tablet,delayed release (DR/EC) 333 mg PO BID Patient Comments: TAKE 1 TABLET BY MOUTH TWICE DAILY bupropion HCl 150 mg tablet extended release 24 hr 150 mg PO DAILY Patient Comments: TAKE 1 TABLET BY MOUTH EVERY DAY cholecalciferol (vitamin D3) 125 mcg (5,000 unit) tablet 125 mcg PO DAILY Patient Comments: TAKE 1 TABLET BY MOUTH EVERY DAY propranolol 40 mg tablet 40 mg PO Q12H Patient Comments: TAKE 1 TABLET BY MOUTH TWICE DAILY Vyvanse 50 mg capsule 50 mg PO DAILY Patient Comments: TAKE 1 CAPSULE BY MOUTH EVERY MORNING Primary Care Provider: Care Physician,No Primary Referrals: [facility] [Provider Group] - 10 Day for suture removal Care Physician,No Primary [Primary Care Provider, Medical] Print Language: Mohawk Disposition Disposition: Home, Self Care Discharge Date/Time: 06/04/25 19:16
== END 2025-06-04 19:16 | disposition home or self-care (01) ==
PROVIDERS: Emergency Provider Emergency Medicine; Visit Provider Emergency Medicine
DX: S68.123A Partial traumatic metacarpophalangeal amputation of left middle finger, initial encounter (principal); F31.9 Bipolar disorder, unspecified; Y99.0 Civilian activity done for income or pay; Z79.899 Other long term (current) drug therapy; F17.290 Nicotine dependence, other tobacco product, uncomplicated; W26.8XXA Contact with other sharp object(s), not elsewhere classified, initial encounter; Y93.G1 Activity, food preparation and clean up; Y92.89 Other specified places as the place of occurrence of the external cause
CPT/HCPCS: 12002; 90471; 90715; 99283